=== PATIENT | female | born 1990 | race Caucasian/White ===

== ENCOUNTER 2018-04-27 22:12 | Emergency (ER) | payer MEDICAID, SELFPAY ==
[2018-04-27 22:13] VITALS: BP 152/79; PULSE 88; RESP 18; TEMP 36.2; O2SAT 99; BMI 44.9
[2018-04-27] MEDS: Naproxen 500 MG Tablet PO (22:31)
[2018-04-27] MEDS: HYDROcodone Bitartrate/Apap 5/325 Tablet PO ×2 (22:31→23:51)
--- NOTE | 2018-04-27 22:40 | RAD_ITS ---
STUDY: X-RAY - PELVIS REASON FOR EXAM: Female, 27 years old. Fall and pain TECHNIQUE: One view of the pelvis was obtained. COMPARISON: None. FINDINGS: There is a non-specific bowel gas pattern. Normal visualized soft tissue structures. Normal bilateral iliac wings, sacroiliac joints and visualized sacrum. Normal visualized bilateral superior and inferior pubic rami. Normal pubic symphysis. Normal ischial tuberosities. Normal visualized right femoral head. Normal right acetabulum. Normal right hip joint. Normal visualized left femoral head. Normal left acetabulum. Normal left hip joint. RAD/Pelvis 1 or 2 Views IMPRESSION: No acute osseous injury is evident. Electronically Signed: Manuel Cody MD at 23:14 EST Tel , Service support ,
--- NOTE | 2018-04-27 22:40 | RAD_ITS ---
STUDY: X-RAY - LUMBAR SPINE REASON FOR EXAM: Female, 27 years old. Fall and pain TECHNIQUE: 3 view(s) of the lumbar spine were obtained. COMPARISON: None FINDINGS: Normal lumbar lordosis. There is no substantial scoliosis. There is a normal alignment of the vertebrae. Normal vertebral bodies and endplates. Normal disc space heights. The soft tissue structures are unremarkable. RAD/Lumbar Spine 2 or 3 Views IMPRESSION: No acute osseous injury is evident. Comment: If there is further clinical concern for a radiographically occult spinal fracture, consider CT correlation if possible. Electronically Signed: Manuel Cody MD at 23:04 EST Tel , Service support ,
--- NOTE | 2018-04-27 23:20 | ED.DCSUM_ITS ---
- ER Visit Summary Date of Service: 04/27/18 Chief Complaint: Back injury History of Present Illness: The patient is a 27 F who fell on the ice landing on her buttocks. She complains of pain to the low back. Pain does not radiate into her legs. She has no paresthesias. She denies any prior problems with her back. Physical Examination: Vital signs significant for blood pressure of 152/79, otherwise unremarkable. Patient sitting on the side of bed. She is uncomfortable but in no acute distress. Head neck examination is unremarkable. Heart is regular rate and rhythm. Lungs sounds are clear. Abdomen is soft and nontender. Back examination reveals no ecchymosis or abrasions. She has significant tenderness of the lumbar midline and over the sacrum. Lower extreme examination was good strength and sensation with strong distal pulses. Test Results: Lumbar spine and pelvis x-rays reveal no evidence of acute osseous injury. Emergency Department Course and Treatment: Patient is given Tenino, Naprosyn, and Flexeril. On repeat evaluation patient is resting comfortably. Test results are discussed with her. She will be given a work note for tonight and written prescriptions for pain and muscle spasm. Treatment Plan: [] Disposition: Discharge Impression: Lumbar strain status post fall This note was generated with [employer] dictation software. It may contain incorrect words, spelling, and punctuation that were not noted in review of the chart prior to signing ED Disposition - Plan for ED Patient: Referrals: Care Physician,No Primary [Primary Care Provider] -
--- NOTE | 2018-04-27 23:20 | ED.DEP ---
ED Disposition - Plan for ED Patient: Disposition: Home or Assisted Living Instructions: ED Sprain Strain Lumbar Prescriptions: Hydrocodone Bitart/Apap 5-325 [Cove 5MG-325MG] 1 tablet PO Q6H PRN PRN 3 Days #10 tablet PRN Reason: Pain Naproxen [Naprosyn] 500 mg PO BID PRN PRN #20 tablet PRN Reason: Pain Cyclobenzaprine [Flexeril] 10 mg PO TID PRN #20 tablet PRN Reason: Muscle Spasm Referrals: Charly Bui MD [STAFF PHYSICIAN] - As Needed
[2018-04-27 23:52] VITALS: RESP 18
== END 2018-04-27 23:53 | disposition home or self-care (01) ==
PROVIDERS: Emergency Provider Emergency Medicine
DX: S39.012A Strain of muscle, fascia and tendon of lower back, initial encounter (principal); M62.830 Muscle spasm of back; W00.0XXA Fall on same level due to ice and snow, initial encounter; Y93.9 Activity, unspecified; Y92.9 Unspecified place or not applicable; Y99.9 Unspecified external cause status; Z72.0 Tobacco use
CPT/HCPCS: 72100; 72170; 99283

== ENCOUNTER 2018-07-13 10:03 | Emergency (ER) | payer MEDICAID, SELFPAY ==
[2018-07-13 10:05] VITALS: BP 150/89; PULSE 83; RESP 16; TEMP 36.3; O2SAT 99; BMI 49.8
[2018-07-13] MEDS: 0.9% Normal Saline 1,000 ML 1000 ML IV (10:49)
[2018-07-13] MEDS: Ketorolac 30 MG/ML Syringe IV (10:49)
[2018-07-13] MEDS: Metoclopramide 10 MG/2 ML Vial IV (10:49)
[2018-07-13] MEDS: DiphenhydrAMINE 50 MG/ML Syringe 25 MG IV (10:49)
--- NOTE | 2018-07-13 11:15 | ED.VISSUMM ---
- ER Visit Summary Date of Service: 07/13/18 Chief Complaint: [Headache] History of Present Illness: The patient is a 27 F [presents to the emergency department complaint of a headache that started 2 days ago. Patient describes it as throbbing bitemporal. Patient complains of photophobia and severe phonophobia. Patient had some mild nausea but no vomiting. She denies any falls or head injuries. She has had increased stress due to finances recently. Patient does get headaches intermittently. Patient currently rates the headache an 8 out of 10. Headache did not improve with ibuprofen at home. She denies any fever or recent illness. She denies urinary symptoms.] Physical Examination: [HEENT-PERRLA, EOMI. Cranial nerves II through XII grossly intact. TMs clear. Mucous membranes moist. No adenopathy. Cardiovascular-regular rate and rhythm without murmur or ectopy Lungs-clear to auscultation, chest wall stable without crepitus or subcu emphysema Abdomen-normoactive bowel sounds, soft, nontender, no rebound or rigidity, no peritoneal signs. Neuro dxdm-bfkpeq-lbhb and heel luis testing within normal limits, negative Romberg, negative pronator drift, fundi benign Extremities-intact ?4, normal range of motion, normal pulses, atraumatic] Test Results: None indicated] Emergency Department Course and Treatment: [Patient was medicated with Reglan, Benadryl, and Toradol. Patient was given a liter normal same fluid bolus.] Patient states that her pain is significantly improved and just has minimal discomfort at this time. Treatment Plan: [Patient will be referred to primary care physician phonograph cartridge assembler for no doc for follow-up. Patient advised to push fluids. Patient advised to return if worsening pain, difficulty with balance or speech, or condition should worsen anyway.] Disposition: [Discharged home in stable condition] Impression: [Cephalgia] This note was generated with [employer] dictation software. It may contain incorrect words, spelling, and punctuation that were not noted in review of the chart prior to signing ED Disposition - Plan for ED Patient: Referrals: Care Physician,No Primary [Primary Care Provider] -
--- NOTE | 2018-07-13 11:49 | ED.DEP ---
ED Disposition - Plan for ED Patient: Instructions: ED Cephalgia Unspecified Referrals: Care Physician,No Primary [Primary Care Provider] - Troy Ramirez III, MD [STAFF PHYSICIAN] - 3-5 Days
== END 2018-07-13 12:17 | disposition home or self-care (01) ==
PROVIDERS: Emergency Provider Emergency Medicine
DX: R51 Headache (principal); H53.149 Visual discomfort, unspecified; R11.0 Nausea; Z72.0 Tobacco use
CPT/HCPCS: 96361; 96374; 96375; 99283; J7030; A4216

== ENCOUNTER → 2019-01-02 09:14 | Outpatient (CLI) | payer MEDICAID, SELFPAY ==
[2019-01-02 11:17] LABS: hCG Titer Quant., Serum 275 mIU/mL (1-3)
== END ==
PROVIDERS: Referring Provider Obstetrics & Gynecology; Visit Provider Obstetrics & Gynecology
DX: N92.6 Irregular menstruation, unspecified (principal)
CPT/HCPCS: 36415; 84702

== ENCOUNTER 2019-01-03 12:14 | Emergency (ER) | payer MEDICAID, SELFPAY ==
[2019-01-03 12:15] VITALS: BP 138/84; PULSE 67; RESP 18; TEMP 35.7; BMI 49.4
--- NOTE | 2019-01-03 13:14 | ED.VISSUMM ---
- ER Visit Summary Date of Service: 01/03/19 Chief Complaint: Vaginal bleeding and reportedly early History of Present Illness: The patient is a 28 F G3, P1 Ab1 with that being a miscarriage. Patient is concerned she is miscarrying again. Last menstrual period was about 2 weeks ago. She is had intermittent bleeding for the last week. No significant pain. No dysuria. No fever. He had a recent clot which was 275 within the last 2 days. And her blood type is been positive from prior labs. Physical Examination: Well-appearing 28-year-old female. No acute distress. Vital signs are stable and afebrile. H EENT exam unremarkable. Lungs clear to auscultation. Heart regular rhythm no murmur. Abdomen soft and nontender. Normal bowel sounds no peritoneal signs. Extremities moves all 4. Neurovascular intact. No edema. Neurologically she is awake alert with no focal motor deficits. Test Results: None Emergency Department Course and Treatment: I reviewed the patient's most recent quant which was 275 and last 2 days. Her blood type B+. I explained to both her and her additional labs with really made no significant difference at this time. An ultrasound is not warranted. She will follow-up with her ELIGIBILITY COUNSELOR this week. Treatment Plan: Follow-up with her OB this week. Need a repeat quant. Further evaluation. Return if worse. Disposition: Discharge Impression: Threatened miscarriage This note was generated with [employer] dictation software. It may contain incorrect words, spelling, and punctuation that were not noted in review of the chart prior to signing ED Disposition - Plan for ED Patient: Referrals: Care Physician,No Primary [Primary Care Provider] -
--- NOTE | 2019-01-03 13:16 | ED.DEP ---
ED Disposition - Plan for ED Patient: Disposition: Home or Assisted Living Instructions: POSSIBLE MISCARRIAGE (Threatened ) Referrals: Hailey Loving MD [STAFF PHYSICIAN] - 3-5 Days Additional Instructions: Tylenol for any cramping. Follow-up with your CONTACT LENS EDGE BUFFER and have a repeat quantitative hCG done later this week. Return to the ER if a lot heavier and continued vaginal bleeding.
== END 2019-01-03 13:27 | disposition home or self-care (01) ==
PROVIDERS: Emergency Provider Emergency Medicine
DX: O20.0 Threatened abortion (principal); O99.330 Smoking (tobacco) complicating pregnancy, unspecified trimester; Z3A.00 Weeks of gestation of pregnancy not specified
CPT/HCPCS: 99282

== ENCOUNTER → 2019-01-05 | Outpatient (CLI) | payer MEDICAID, SELFPAY ==
[2019-01-03 12:15] VITALS: BMI 49.4
[2019-01-05 14:25] LABS: hCG Titer Quant., Serum 105 mIU/mL (1-3)
== END | disposition home or self-care (01) ==
PROVIDERS: Referring Provider Obstetrics & Gynecology; Visit Provider Obstetrics & Gynecology
DX: O20.0 Threatened abortion (principal)
CPT/HCPCS: 36415; 84702

== ENCOUNTER → 2019-01-07 10:20 | Outpatient (CLI) | payer MEDICAID, SELFPAY ==
[2019-01-03 12:15] VITALS: BMI 49.4
[2019-01-07 12:10] LABS: hCG Titer Quant., Serum 108 mIU/mL (1-3)
== END ==
PROVIDERS: Referring Provider Obstetrics & Gynecology; Visit Provider Obstetrics & Gynecology
DX: O20.0 Threatened abortion (principal); Z3A.00 Weeks of gestation of pregnancy not specified
CPT/HCPCS: 36415; 84702

== ENCOUNTER → 2019-01-09 09:09 | Outpatient (CLI) | payer MEDICAID, SELFPAY ==
[2019-01-03 12:15] VITALS: BMI 49.4
[2019-01-09 10:17] LABS: hCG Titer Quant., Serum 81 mIU/mL (1-3)
== END ==
PROVIDERS: Referring Provider Obstetrics & Gynecology; Visit Provider Obstetrics & Gynecology
DX: O20.0 Threatened abortion (principal); Z3A.00 Weeks of gestation of pregnancy not specified
CPT/HCPCS: 36415; 84702

== ENCOUNTER 2019-01-11 18:27 | Emergency (ER) | payer MEDICAID, SELFPAY ==
[2019-01-11 18:29] VITALS: BP 148/85; PULSE 89; RESP 16; TEMP 36.2; O2SAT 99; BMI 54.6
[2019-01-11 19:52] LABS: Bacteria 0 SEEN /hpf (None Seen); Color, Urine Yellow (Yellow); Glucose, Dipstick Normal (Normal); Ketone-Dipstick 5 mg/dl (Negative); Leukocyte Esterase-Dipstick 25 /ul (Negative); Nitrite-Dipstick Negative (Negative); Occult Blood-Urine 150 /ul (Negative); Protein-Dipstick 15 mg/dl (Negative); Urine Bilirubin Dipstick Negative (Negative); Urine Clarity Clear (Clear); Urine Urobilinogen 4 mg/dl (Normal); White Blood Cells 0 SEEN /hpf (0-5)
[2019-01-11] MEDS: 0.9% Normal Saline 1,000 ML 1000 ML IV (19:52)
[2019-01-11 20:02] LABS: Mucous, Urine RARE /hpf (<or=2+); Squamous Epithelial Cells - UA 0-5 SEEN /hpf (5-10)
[2019-01-11 20:03] LABS: Red Blood Cells-Urine 0-5 SEEN /hpf (0-5)
[2019-01-11 20:05] LABS: Absolute Neutrophil Count 6.1 X10^3/uL (2.0-7.7); Basophil# 0.05 X10^3/uL; Basophil% 0.4 % (0-1); Eosinophil# 0.26 X10^3/uL; Eosinophils% 2.3 % (0-5); Hematocrit 43.8 % (37-47); Hemoglobin 14.2 g/dL (12.0-15.0); Lymphocyte % 35.9 % (19-41); Mean Corp Hgb Conc 32.4 g/dL (32-36); Mean Corpuscular Hgb 27.4 pg (27.0-32.0); Mean Corpuscular Volume 84.6 fL (81-99); Mean Platelet Vol. 10.4 fl (6.2-12.0); Monocyte# 0.88 X10^3/uL; Monocyte% 7.7 % (0-10); NRBC Flagged by Analyzer 0 % (0-5); Neutrophil # 6.09 X10^3/uL (2.7-7.7); Neutrophil % 53.4 % (47-70); POSITIVE MORPHOLOGY YES; Platelet Count 270 K/mm3 (150-450); RBC Distribution Width SD 40.4 fl (35.1-43.9); Red Blood Count 5.18 M/mm3 (4.2-5.4); White Blood Count 11.4 K/mm3 (4.4-11.0)
[2019-01-11 20:09] LABS: Differential Indicated SCAN CRITERIA MET
[2019-01-11 20:22] LABS: hCG Titer Quant., Serum 61 mIU/mL (1-3)
[2019-01-11 20:34] LABS: Differential Comment SCANNED; Platelet Estimate ADEQUATE (ADEQ); Reactive Lymphocyte RARE; Red Cell Morphology NORM C+C NORMAL (NORM C&C)
--- NOTE | 2019-01-11 20:57 | ED.VISSUMM ---
- ER Visit Summary Date of Service: 01/11/19 Chief Complaint: Pelvic pain History of Present Illness: The patient is a 28 F who presents with pelvic pain that is gradually gotten worse over the past 2 days. Patient states the pain is constant. Patient states the pain is over the pelvic area, left lower quadrant and left lower back area. Patient states nothing makes it better or worse. Patient describes the pain is sharp and a warm feeling. Patient denies any dysuria or hematuria. Patient admits to nausea but denies any vomiting. Patient denies any fevers or chills. Patient denies any other symptoms. Patient saw her SITE SURVEYOR 2 days ago and had an hCG drawn at that time which was 81. Physical Examination: Vital signs are stable. Patient is afebrile. Patient is in no acute distress. Oral mucosa is pink and moist. Neck is supple. Trachea is midline. There is no JVD. Heart was regular rate and rhythm. Lungs are clear and equal bilaterally. Abdomen is soft. Bowel sounds are normal. There is tenderness over the suprapubic and left lower quadrant areas. There is no rebound or guarding noted. Cranial nerves II through XII are intact. There are no focal motor or sensory deficits noted. Test Results: CBC shows slight leukocytosis of 11.4. Urinalysis does not show any evidence of urinary tract infection. Quantitative hCG was 61. Emergency Department Course and Treatment: Patient was given IV fluids. Patient was given a dose of [place] here. Patient was advised that her hCG level is declining and therefore she is likely having a miscarriage. Patient was instructed to follow-up with her SITE SURVEYOR in 1 to 2 days. Patient understood and was agreeable with the plan. All questions were answered. Disposition: Discharge home Impression: Spontaneous This note was generated with [employer] dictation software. It may contain incorrect words, spelling, and punctuation that were not noted in review of the chart prior to signing ED Disposition - Plan for ED Patient: Disposition: Home or Assisted Living Diagnosis: Spontaneous Instructions: Miscarriage Referrals: Care Physician,No Primary [Primary Care Provider] - Additional Instructions: Follow-up with your SITE SURVEYOR in 1 to 2 days. Return if worsening bleeding or cramping.
[2019-01-11] MEDS: HYDROcodone Bitartrate/Apap 5/325 Tablet PO (21:11)
[2019-01-11 21:18] VITALS: BP 140/60; PULSE 73; RESP 16; O2SAT 100
== END 2019-01-11 21:20 | disposition home or self-care (01) ==
PROVIDERS: Emergency Provider Emergency Medicine
DX: O03.9 Complete or unspecified spontaneous abortion without complication (principal); R11.0 Nausea; E66.9 Obesity, unspecified; Z72.0 Tobacco use
CPT/HCPCS: 81001; 84702; 85025; 96360; 99284; J7030; A4216

== ENCOUNTER → 2019-01-18 15:56 | Outpatient (CLI) | payer MEDICAID, SELFPAY ==
[2019-01-12 15:12] VITALS: BMI 54.6
[2019-01-18 16:45] LABS: hCG Titer Quant., Serum 16 mIU/mL (1-3)
== END ==
PROVIDERS: Visit Provider Obstetrics & Gynecology
DX: O03.9 Complete or unspecified spontaneous abortion without complication (principal)
CPT/HCPCS: 36415; 84702

== ENCOUNTER 2019-04-24 10:45 | Emergency (ER) | payer MEDICAID, SELFPAY ==
[2019-01-12 15:12] VITALS: BMI 54.6
[2019-04-24 10:47] VITALS: BP 141/84; PULSE 86; RESP 20; TEMP 37.2; O2SAT 98; BMI 47.7
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
[2019-04-24] MEDS: oxyCODONE 5 MG Tablet PO (11:09)
== END 2019-04-24 12:21 | disposition home or self-care (01) ==
PROVIDERS: Emergency Provider Emergency Medicine
DX: Z04.1 Encounter for examination and observation following transport accident (principal); M54.5 Low back pain; R51 Headache; R11.0 Nausea; E66.9 Obesity, unspecified; Z88.0 Allergy status to penicillin; Z88.1 Allergy status to other antibiotic agents; F17.200 Nicotine dependence, unspecified, uncomplicated
CPT/HCPCS: 70450; 72100; 72125; 99283

== ENCOUNTER 2019-09-04 18:45 | Emergency (ER) | payer MEDICAID, SELFPAY ==
[2019-09-04 18:46] VITALS: BP 149/97; PULSE 80; RESP 16; TEMP 36.1; O2SAT 99; BMI 48.8
--- NOTE | 2019-09-04 20:56 | ED.VIS.GEN ---
History of Present Illness Chief Complaint: Headache Narrative: Patient presents with a headache that started 3 days ago it is right sided she has photophobia, phonophobia. She denies any visual changes, she has some nausea no vomiting she does tell me she thinks she is about 10 weeks due to a positive test at home. She has no abdominal pain no vaginal bleeding or any other symptoms. Her headache was gradual in onset, got worse quite a few hours after the onset, it is similar to all her prior migraines, she tells me the last headache that was this bad was about 3 months ago. Past Medical History - Allergies and Home Meds Allergies/Adverse Reactions: Allergies adhesive Allergy (Verified 09/04/19 20:28) Rash amoxicillin [Amoxicillin] Allergy (Verified 09/04/19 20:28) Rash cefaclor [From Ceclor] Allergy (Verified 09/04/19 20:28) Rash Penicillins Allergy (Verified 09/04/19 20:28) Rash Primary Care Physician: Care Physician,No Primary [Primary Care Provider] - Past Medical History: - - Migraines, asthma Smoking Status: Current every day smoker Review of Systems All systems negative except as indicated General: Denies: Fever Eyes: Denies: Visual changes - bilaterally Cardiovascular: Denies: Chest pain Respiratory: Denies: Dyspnea, Cough Genitourinary: Denies: Dysuria Musculoskeletal: Denies: Myalgias, Arthralgias Skin: Denies: Rash Neurological: Reports: Headache. Denies: Weakness, Parasthesia, Numbness Psych: Reports: Depression Hematologic: Denies: Easy bruising Physical Exam Vital Signs/Narrative: Vital Signs Temp Pulse Resp BP Pulse Ox 09/04/19 18:46 97 F L 80 16 149/97 H 99 General: Well nourished, Well developed, - - She appears in slight distress Head: Normocephalic Eyes: Perrl, EOMI ENT: Moist mucous membranes Cardiovascular: Regular rate, Regular rhythm Respiratory: No distress Abdomen: Soft, Nontender Back: Nontender, Normal Inspection Extremities: No edema Skin: Normal color Neurological: Alert, Oriented x3, Cranial nerves II-XII grossly intact, Normal Strength, Normal Sensation Diagnostic/Tx/Re-eval - Medical Decision Making Patient will receive IV fluids, Reglan and Benadryl. She will be reevaluated by the oncoming emergency physician. This is gradual onset of headache with normal neurological exam, this is a recurrent headache, there is no indication for neurological imaging. ED Disposition - Plan for ED Patient: Disposition: Home or Assisted Living Instructions: ED, Migraine (Classical) Referrals: Care Physician,No Primary [Primary Care Provider] - Additional Instructions: Follow-up with your TURBINE SUBASSEMBLER next week as scheduled.
[2019-09-04] MEDS: 0.9% Normal Saline 1,000 ML 999 ML IV (22:14)
[2019-09-04] MEDS: DiphenhydrAMINE 50 MG/ML Syringe IV (22:15)
[2019-09-04] MEDS: Metoclopramide 10 MG/2 ML Vial IV (22:16)
[2019-09-04 22:50] LABS: Internal QC Validated? YES +Cl - CLEAR BKGD; Pregnancy, Serum, hCG Quali. POSITIVE Negative
[2019-09-04 23:31] VITALS: BP 125/89; PULSE 66; RESP 18; TEMP 36.1; O2SAT 100
== END 2019-09-04 23:32 | disposition home or self-care (01) ==
PROVIDERS: Emergency Provider Emergency Medicine
DX: R51 Headache (principal); Z32.01 Encounter for pregnancy test, result positive; J45.909 Unspecified asthma, uncomplicated; F17.200 Nicotine dependence, unspecified, uncomplicated
CPT/HCPCS: 84703; 96361; 96374; 96375; 99285; J7030

== ENCOUNTER → 2019-09-09 | Outpatient (CLI) | payer MEDICAID, SELFPAY ==
[2019-09-09 11:56] VITALS: BMI 48.8
[2019-09-09 16:49] LABS: Amphetamine Urine VISTA NEGATIVE (<1000 ng/mL); Barbiturate Urine VISTA NEGATIVE (< 200 ng/mL); Benzodiazepine Urine VISTA NEGATIVE (< 200 ng/mL); Cocaine Urine VISTA NEGATIVE (< 300 ng/mL); Ecstacy Urine VISTA NEGATIVE (< 500 ng/mL); Methadone Urine VISTA NEGATIVE (< 300 ng/mL); PCP Urine VISTA NEGATIVE (< 25 ng/mL); THC Urine VISTA NEGATIVE (< 50 ng/mL); Vista UDS pH Range 6
[2019-09-09 18:20] LABS: Chlamydia Trachomatis by PCR Negative (Negative); Neisserai gonorrhoeae by PCR Negative (Negative); Probe Check PASS; Sample Adequacy Control PASS; Specimen Processing Control PASS
[2019-09-17 05:35] LABS: HPV APTIMA, High Risk Negative (Negative)
== END | disposition home or self-care (01) ==
LOC: LABSPEC 15:19
PROVIDERS: Visit Provider Obstetrics & Gynecology
DX: Z34.90 Encounter for supervision of normal pregnancy, unspecified, unspecified trimester (principal); Z12.4 Encounter for screening for malignant neoplasm of cervix
CPT/HCPCS: 80307; 87086; 87088; 87491; 87591; 87624; 88175; G0145

== ENCOUNTER → 2019-09-18 10:12 | Outpatient (CLI) | payer MEDICAID, SELFPAY ==
[2019-09-09 11:56] VITALS: BMI 48.8
[2019-09-18 11:47] LABS: NATERA MAILED SPECIMEN
[2019-09-18 12:25] LABS: Glucose Challenge Gest 1H 50g 127 mg/dL (70-140)
[2019-09-18 12:56] LABS: Absolute Lymphocyte Count 2.64 X10^3/uL (0.83-4.51); Absolute Neutrophil Count 6.4 X10^3/uL (2.0-7.7); Basophil# 0.03 X10^3/uL; Basophil% 0.3 % (0-1); Eosinophil# 0.18 X10^3/uL; Eosinophils% 1.8 % (0-5); Hematocrit 38.4 % (37-47); Hemoglobin 12.6 g/dL (12.0-15.0); Lymphocyte # 2.64 X10^3/ul (4.0); Lymphocyte % 26.7 % (19-41); Mean Corp Hgb Conc 32.8 g/dL (32-36); Mean Corpuscular Hgb 27.9 pg (27.0-32.0); Mean Corpuscular Volume 85.1 fL (81-99); Mean Platelet Vol. 10.6 fl (6.2-12.0); Monocyte# 0.58 X10^3/uL; Monocyte% 5.9 % (0-10); NRBC Flagged by Analyzer 0 % (0-5); Neutrophil # 6.43 X10^3/uL (2.7-7.7); Platelet Count 245 K/mm3 (150-450); RBC Distribution Width CV 13.8 % (11.6-14.6); RBC Distribution Width SD 42.5 fl (35.1-43.9); Red Blood Count 4.51 M/mm3 (4.2-5.4); White Blood Count 9.9 K/mm3 (4.4-11.0)
[2019-09-18 13:06] LABS: HIV - WCH Non-Reactive (Nonreactive); Hepatitis B Surface Antigen Non-Reactive (Nonreactive); Hepatitis C Antibody Non-Reactive (Nonreactive); Rubella IgG 124.9 IU/mL
[2019-09-24 03:25] LABS: Rapid Plasmin Reagin (RPR) NONREACTIVE (NONREACTIVE)
== END ==
PROVIDERS: Referring Provider Obstetrics & Gynecology; Visit Provider Obstetrics & Gynecology
DX: O99.211 Obesity complicating pregnancy, first trimester (principal); O99.212 Obesity complicating pregnancy, second trimester; E66.9 Obesity, unspecified; Z3A.00 Weeks of gestation of pregnancy not specified
CPT/HCPCS: 36415; 82950; 85025; 86592; 86703; 86762; 86803; 86850; 86900; 86901; 87340

== ENCOUNTER → 2019-10-08 10:11 | Outpatient (CLI) | payer MEDICAID, SELFPAY ==
[2019-10-08 09:58] VITALS: BMI 48.8
== END ==
PROVIDERS: Referring Provider Nurse Practitioner Women's Health; Visit Provider Nurse Practitioner Women's Health
DX: Z36.9 Encounter for antenatal screening, unspecified (principal)
CPT/HCPCS: 36415

== ENCOUNTER → 2020-01-01 10:28 | Outpatient (CLI) | payer MEDICAID, SELFPAY ==
[2019-12-02 10:37] VITALS: BMI 48.8
[2020-01-01 11:03] LABS: Absolute Lymphocyte Count 3.42 X10^3/uL (0.83-4.51); Absolute Neutrophil Count 9.5 X10^3/uL (2.0-7.7); Basophil# 0.03 X10^3/uL; Basophil% 0.2 % (0-1); Eosinophil# 0.23 X10^3/uL; Eosinophils% 1.6 % (0-5); Hematocrit 35.8 % (37-47); Hemoglobin 11.4 g/dL (12.0-15.0); Lymphocyte # 3.42 X10^3/ul (4.0); Lymphocyte % 24.4 % (19-41); Mean Corp Hgb Conc 31.8 g/dL (32-36); Mean Corpuscular Hgb 27.7 pg (27.0-32.0); Mean Corpuscular Volume 86.9 fL (81-99); Mean Platelet Vol. 9.7 fl (6.2-12.0); Monocyte# 0.79 X10^3/uL; Monocyte% 5.6 % (0-10); NRBC Flagged by Analyzer 0 % (0-5); Neutrophil # 9.45 X10^3/uL (2.7-7.7); Neutrophil % 67.6 % (47-70); Platelet Count 264 K/mm3 (150-450); RBC Distribution Width CV 12.9 % (11.6-14.6); RBC Distribution Width SD 40.5 fl (35.1-43.9); Red Blood Count 4.12 M/mm3 (4.2-5.4)
[2020-01-01 11:17] LABS: Glucose Challenge Gest 1H 50g 134 mg/dL (70-140)
== END ==
PROVIDERS: Obstetrics & Gynecology; Referring Provider Obstetrics & Gynecology; Visit Provider Obstetrics & Gynecology
DX: O09.90 Supervision of high risk pregnancy, unspecified, unspecified trimester (principal); Z13.1 Encounter for screening for diabetes mellitus
CPT/HCPCS: 36415; 82950; 85025

== ENCOUNTER → 2020-01-05 09:49 | Outpatient (CLI) | payer MEDICAID, SELFPAY ==
[2020-01-01 10:40] VITALS: BMI 52.4
[2020-01-05 11:35] LABS: Glucose GTT-Gestation. Fasting 97 mg/dL (<105)
[2020-01-05 12:09] LABS: Glucose GTT-Gestational 1 Hr 163 mg/dL (<190)
[2020-01-05 13:15] LABS: Glucose GTT-Gestational 2 Hr 148 mg/dL (<165)
[2020-01-05 13:43] LABS: Glucose GTT-Gestational 3 Hr 124 L (<145)
== END ==
PROVIDERS: Referring Provider Obstetrics & Gynecology; Visit Provider Obstetrics & Gynecology
DX: Z13.1 Encounter for screening for diabetes mellitus (principal)
CPT/HCPCS: 36415; 82951; 82952

== ENCOUNTER → 2020-01-12 14:28 | Outpatient (CLI) | payer MEDICAID, SELFPAY ==
[2020-01-01 10:40] VITALS: BMI 52.4
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
== END ==
PROVIDERS: Referring Provider Obstetrics & Gynecology; Visit Provider Obstetrics & Gynecology
DX: O99.210 Obesity complicating pregnancy, unspecified trimester (principal)
CPT/HCPCS: 76816

== ENCOUNTER → 2020-02-09 14:24 | Outpatient (CLI) | payer MEDICAID, SELFPAY ==
[2020-01-01 10:40] VITALS: BMI 52.4
[2020-02-01 11:03] VITALS: BMI 52.9
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
== END ==
PROVIDERS: Referring Provider Obstetrics & Gynecology; Visit Provider Obstetrics & Gynecology
DX: O99.210 Obesity complicating pregnancy, unspecified trimester (principal); Z3A.00 Weeks of gestation of pregnancy not specified
CPT/HCPCS: 76816

== ENCOUNTER 2020-02-19 14:16 | Emergency (ER) | payer MEDICAID, SELFPAY ==
[2020-02-17 11:01] VITALS: BMI 53.7
[2020-02-19 14:17] VITALS: BP 141/79; PULSE 101; PULSE 104; RESP 16; RESP 28; TEMP 36.8; O2SAT 97; BMI 54.2
--- NOTE | 2020-02-19 14:22 | NURSING ---
NO OLD EKGS
--- NOTE | 2020-02-19 14:26 | EKG12_ITS ---
Test Reason : CP Blood Pressure : / mmHG Vent. Rate : 104 BPM Atrial Rate : 104 BPM P-R Int : 132 ms QRS Dur : 070 ms QT Int : 336 ms P-R-T Axes : 045 -07 005 degrees QTc Int : 441 ms Sinus tachycardia Otherwise normal ECG Confirmed by VALE GARDNER, WILFRIDO ([id number]), editor producer MELISSA VARGHESE ([id number]) on 02/24/2020 9:19:48 AM Referred By: GERRY Confirmed By:WILFRIDO COLLAZO MD
[2020-02-19 14:39] LABS: Absolute Lymphocyte Count 3.03 X10^3/uL (0.83-4.51); Absolute Neutrophil Count 10.9 X10^3/uL (2.0-7.7); Basophil# 0.04 X10^3/uL; Basophil% 0.3 % (0-1); Eosinophil# 0.16 X10^3/uL; Eosinophils% 1.1 % (0-5); Hematocrit 38.5 % (37-47); Hemoglobin 12.7 g/dL (12.0-15.0); Lymphocyte # 3.03 X10^3/ul (4.0); Lymphocyte % 20.5 % (19-41); Mean Corpuscular Volume 81.7 fL (81-99); Mean Platelet Vol. 10.1 fl (6.2-12.0); Monocyte# 0.48 X10^3/uL; Monocyte% 3.2 % (0-10); NRBC Flagged by Analyzer 0 % (0-5); Neutrophil # 10.94 X10^3/uL (2.7-7.7); Platelet Count 286 K/mm3 (150-450); RBC Distribution Width CV 12.8 % (11.6-14.6); Red Blood Count 4.71 M/mm3 (4.2-5.4); White Blood Count 14.8 K/mm3 (4.4-11.0)
[2020-02-19 15:00] LABS: Anion Gap 8 (5-15); BUN 6 mg/dL (7-18); BUN/Creat Ratio 8.7 RATIO (10-20); Chloride 107 mmol/L (98-107); Creatinine, Serum 0.69 mg/dL (0.55-1.02); EST Glomerular Filtration Rate 105 mL/min (>60); Est Glom Filt Rate - Afr Amer 127 mL/min (>60); Estimated Creatinine Clearance 84.85 ml/min; Glucose 162 mg/dL (74-106); Potassium 3.7 mmol/L (3.5-5.1); Sodium Level 137 mmol/L (136-145)
[2020-02-19 15:17] VITALS: BP 139/75; PULSE 96; RESP 18; O2SAT 98
--- NOTE | 2020-02-19 15:50 | RAD_ITS ---
STUDY: X-RAY CHEST REASON FOR EXAM: Female, 29 years old. Chest pain TECHNIQUE: Frontal view of the chest COMPARISON: 10/05/14 FINDINGS: The lungs are clear. There are no pleural effusions. There is no pneumothorax. The heart is normal in size. The visualized osseous structures are within normal limits. RAD/Chest 1 View (Portable) IMPRESSION: No acute thoracic pathology. Electronically Signed: Hero Reynolds, at 17:08 EST Tel , Service support ,
--- NOTE | 2020-02-19 15:59 | ED.DCSUM_ITS ---
History of Present Illness Informant: Patient Onset: Today Narrative: 29-year-old female who is currently 35 weeks with past medical history of asthma presents with complaints of chest pain. At approximately 2 PM she was sitting on the couch when she started to feel her heart race. She started having left-sided chest pain which she describes as a sensation that someone was poking her. Pain was 6/10. No radiation. She was mildly nauseous, but denies vomiting or diaphoresis. Nothing made the pain better or worse. No shortness of breath. She states now the pain is starting to subside. Denies fevers, chills, cough, shortness of breath, abdominal pain, back pain, leg pain or swelling, recent surgery or travel, or history of DVT/PE <Opal Benjamin - Last Filed: 02/19/20 17:11> <Malcolm Vincent - Last Filed: 02/19/20 20:50> Chief Complaint: Chest Pain Past Medical History Past Medical History: - - Asthma Smoking Status: Current some day smoker <Opal Benjamin - Last Filed: 02/19/20 17:11> <Malcolm Vincent - Last Filed: 02/19/20 20:50> - Allergies and Home Meds Allergies/Adverse Reactions: Allergies adhesive Allergy (Verified 02/19/20 14:17) Rash amoxicillin [Amoxicillin] Allergy (Verified 02/19/20 14:17) Rash cefaclor [From Ceclor] Allergy (Verified 02/19/20 14:17) Rash Penicillins Allergy (Verified 02/19/20 14:17) Rash Primary Care Physician: Care Physician,No Primary [Primary Care Provider] - Review of Systems General: Denies: Chills, Fever, Sweats Eyes: Denies: Visual changes - bilaterally, Diplopia ENT: Denies: Rhinorrhea, Sore throat Cardiovascular: Reports: Chest pain, Palpitations, Heart racing Respiratory: Denies: Dyspnea, Cough, Dyspnea on exertion Gastrointestinal: Denies: Abdominal pain, Nausea, Vomiting, Diarrhea, Melena, Hematochezia Genitourinary: Denies: Dysuria, Hematuria, Frequency Musculoskeletal: Denies: Back pain, Extremity Pain Skin: Denies: Rash, Wounds Neurological: Denies: Headache, Weakness, Numbness <Opal Benjamin - Last Filed: 02/19/20 17:11> Physical Exam Vital Signs/Narrative: Vital Signs Temp Pulse Resp BP Pulse Ox 02/19/20 15:17 96 18 139/75 H 98 02/19/20 14:17 98.3 F 104 H 16 141/79 H 97 Inital Vital Signs reviewed: Yes General: Well nourished, Well developed, No Acute Distress Head: Normocephalic, Atraumatic Eyes: Perrl, EOMI ENT: Moist mucous membranes, No rhinorrhea Neck: Supple, Nontender Cardiovascular: Regular rate, Regular rhythm, No murmurs Respiratory: No distress, CTA bilaterally, Chest nontender Abdomen: Soft, Nontender, Nondistended, Normal bowel sounds, - - Gravid abdomen, soft and nontender Back: Nontender, Normal Inspection Extremities: Nontender, No edema Skin: Normal color, No rash Neurological: Alert, Oriented x3, Cranial nerves II-XII grossly intact Psychological: Normal affect, Normal Mood <Opal Benjamin - Last Filed: 02/19/20 17:11> Vital Signs/Narrative: Vital Signs Pulse Resp BP Pulse Ox 02/19/20 17:49 89 22 H 129/88 H 97 02/19/20 17:00 92 20 H 127/82 H 99 <Malcolm Vincent - Last Filed: 02/19/20 20:50> Diagnostic/Tx/Re-eval Clinical Impression(s) from Imaging Studies Chest X-Ray 02/19/20 15:50 IMPRESSION: No acute thoracic pathology. Electronically Signed: Hero Reynolds, at 17:08 EST Tel , Service support , Laboratory Data 02/19/20 02/19/20 14:02 14:02 WBC 14.8 H RBC 4.71 Hgb 12.7 Hct 38.5 MCV 81.7 MCH 27.0 MCHC 33.0 RDW Std Deviation 38.0 RDW Coeff of John Paul 12.8 Plt Count 286 MPV 10.1 Immature Gran % (Auto) 0.900 Neut % (Auto) 74.0 H Lymph % (Auto) 20.5 Johnston % (Auto) 3.2 Eos % (Auto) 1.1 Baso % (Auto) 0.3 Absolute Neuts (auto) 10.9 H Absolute Lymphs (auto) 3.03 Nucleated RBC % 0 Sodium 137 Potassium 3.7 Chloride 107 Carbon Dioxide 22.0 Anion Gap 8 BUN 6 L Creatinine 0.69 Estim Creat Clear Calc 84.85 Est GFR (MDRD) Af Amer 127 Est GFR (MDRD) Non-Af 105 BUN/Creatinine Ratio 8.7 L Glucose 162 H Calcium 9.0 Troponin I < 0.015 - Rhythm Strip Rhythm Strip: Sinus Tach Rate: 104 Ectopy: None - Medical Decision Making 29-year-old female who is 35 weeks presents with palpitations and transient left-sided chest pain. She appears well nontoxic. Vital signs show heart rate in the 100s, otherwise normal. Heart is tachycardic with regular rhythm with no murmurs or gallops. Lungs were clear to auscultation. No lower extremity swelling or tenderness. EKG is sinus tachycardia at 104 with normal intervals and no ischemic changes. Basic labs unremarkable. Troponin negative. Chest x-ray shows no acute process. Upon reevaluation, patient states her chest pain has completely resolved. Heart rate has improved to the 80s. O2 sat was 95% or above during the entire stay. With her history, completely resolved symptoms, and normal vital signs, I have low concern for PE. She is stable for outpatient follow up with her PCP and [employer]. Discussed signs and symptoms that would warrant return to the ED. She was agreeable and discharged home in stable condition. <Opal Benjamin - Last Filed: 02/19/20 17:11> - Medical Decision Making Patient seen and examined independently. On my examination she is feeling much better. Her work-up here did not reveal any significant acute abnormality. I do not have a great explanation to the cause of her symptoms although does not seem to be ACS. Low concern for pulmonary embolism. Her symptoms have completely resolved and she does want to be discharged home. We will have her follow-up with her PCP. Warning signs and symptoms which to return to ED are reviewed. <Malcolm Vincent - Last Filed: 02/19/20 20:50> ED Disposition <Opal Benjamin - Last Filed: 02/19/20 17:11> <Malcolm Vincent - Last Filed: 02/19/20 20:50> - Plan for ED Patient: Disposition: Home or Assisted Living Instructions: ED Chest Pain, Noncardiac Referrals: Care Physician,No Primary [Primary Care Provider] -
[2020-02-19 16:00] VITALS: BP 127/87; PULSE 86; RESP 13; O2SAT 97
[2020-02-19 17:00] VITALS: BP 127/82; PULSE 92; RESP 20; O2SAT 99
[2020-02-19 17:49] VITALS: BP 129/88; PULSE 89; RESP 22; O2SAT 97
== END 2020-02-19 17:51 | disposition home or self-care (01) ==
LOC: ED 14:49
PROVIDERS: Emergency Provider Physician Assistant
DX: O26.893 Other specified pregnancy related conditions, third trimester (principal); R07.89 Other chest pain; R00.2 Palpitations; O99.513 Diseases of the respiratory system complicating pregnancy, third trimester; J45.909 Unspecified asthma, uncomplicated; Z3A.35 35 weeks gestation of pregnancy
CPT/HCPCS: 71045; 80048; 84484; 85025; 93005; 99285

== ENCOUNTER → 2020-02-26 12:33 | Outpatient (CLI) | payer MEDICAID, SELFPAY ==
[2020-02-24 11:30] VITALS: BMI 49.4
--- NOTE | 2020-02-26 12:35 | US_ITS ---
STUDY: OBSTETRICAL ULTRASOUND - BIOPHYSICAL PROFILE REASON FOR EXAM: Female, 29 years old DECREASED MOVEMENT LMP: 06/18/2019 PRIOR ULTRASOUND: Comparison is made with prior examination dated 02/09/2020. TECHNIQUE: Transabdominal TECHNICAL QUALITY: Adequate. FINDINGS: There is a single intrauterine fetus. The fetus is in a cephalic presentation. There is demonstrated cardiac activity with a heart rate of 144 bpm. There is a normal amniotic fluid volume. The largest amniotic fluid pocket measures 6.3 cm. The amniotic fluid index (FRANCK) is 15.7 cm. The placenta is fundal in location. There are Grade 2 placental changes. Age by LMP: 36 weeks, 1 days. BETTY by LMP: 03/24/2020. age by prior US: 36 weeks, 3 days. BETTY by prior US: 03/22/2020. BIOPHYSICAL PROFILE: Breathing Movements (FBM): 2 Gross Body Movements (GBM): 2 Tone (FT): 2 Amniotic Fluid Volume (AFV): 2 TOTAL SCORE: / 8 US/Biophysical Prof W/O Non Stres IMPRESSION: Normal biophysical profile of 10/16. Electronically Signed: Mejia Castillo, at 15:15 EST , Service support ,
== END ==
PROVIDERS: Referring Provider Obstetrics & Gynecology; Visit Provider Obstetrics & Gynecology
DX: O36.8190 Decreased fetal movements, unspecified trimester, not applicable or unspecified (principal); O36.8130 Decreased fetal movements, third trimester, not applicable or unspecified; Z3A.36 36 weeks gestation of pregnancy
CPT/HCPCS: 76819

== ENCOUNTER → 2020-03-03 | Outpatient (CLI) | payer MEDICAID, SELFPAY ==
[2020-03-03 09:35] VITALS: BMI 51.2
== END | disposition home or self-care (01) ==
LOC: LABSPEC 12:26
PROVIDERS: Referring Provider Obstetrics & Gynecology; Visit Provider Obstetrics & Gynecology
DX: O09.90 Supervision of high risk pregnancy, unspecified, unspecified trimester (principal)
CPT/HCPCS: 87077; 87081

== ENCOUNTER → 2020-03-08 13:50 | Outpatient (CLI) | payer MEDICAID, SELFPAY ==
[2020-01-01 10:40] VITALS: BMI 52.4
[2020-03-03 09:35] VITALS: BMI 51.2
--- NOTE | 2020-03-08 13:51 | US_ITS ---
STUDY: SECOND AND THIRD TRIMESTER OBSTETRICAL ULTRASOUND - LIMITED REASON FOR EXAM: Female, 29 years old . Growth. LMP: 07/02/2019. PRIOR ULTRASOUND: 01/12/2020, 02/09/2020 and 02/26/2020 TECHNIQUE: Transabdominal TECHNICAL QUALITY: Adequate. FINDINGS: There is a single intrauterine fetus. The fetus is in a cephalic presentation. There is demonstrated cardiac activity with a heart rate of 147 bpm. There is a normal amniotic fluid volume. The largest amniotic fluid pocket measures 5.92 cm. The amniotic fluid index (FRANCK) is 17.53 cm. The placenta is fundal in location. There are Grade grade placental changes. The cervix is obscured. BIOMETRY: BPD: 9.18 cm: 37 weeks, 1 days HC: 32.82 cm: 37 weeks, 2 days AC: 35.99 cm: 39 weeks, 6 days FL: 6.87 cm: 35 weeks, 1 days Age by LMP: 37 weeks, 5 days. BETTY by LMP: 03/24/2020. age by prior US: 38 weeks, 0 days. BETTY by prior US: 03/22/2020. age by current US: 37 weeks, 3 days. BETTY by current US: 03/26/2020. Estimated weight: 05/13/2000 grams, +/- 525 grams, 70 percentile. Gender: Indeterminant US/OB Limited With Biometrics IMPRESSION: 1. Live single intrauterine at 37 weeks, 3 days. BETTY is 03/26/2020. There is adequate interval growth since the initial ultrasound. 2. EFW 3501 g. 3. FRANCK of 17.53 cm. 4. Fundal grade 3 placenta. 5. VERTEX presentation. Electronically Signed: Edin Jones DO at 23:31 EST Tel [phone], Service support ,
== END ==
PROVIDERS: Referring Provider Obstetrics & Gynecology; Visit Provider Obstetrics & Gynecology
DX: O99.210 Obesity complicating pregnancy, unspecified trimester (principal); Z3A.37 37 weeks gestation of pregnancy
CPT/HCPCS: 76816

== ENCOUNTER → 2020-03-10 | Outpatient (CLI) | payer MEDICAID, SELFPAY ==
[2020-03-03 09:35] VITALS: BMI 51.2
[2020-03-09 11:47] VITALS: BMI 51.0
== END | disposition home or self-care (01) ==
LOC: LABSPEC 09:54
PROVIDERS: Visit Provider Obstetrics & Gynecology
DX: Z34.90 Encounter for supervision of normal pregnancy, unspecified, unspecified trimester (principal)
CPT/HCPCS: 87635; C9803; U0003

== ENCOUNTER 2020-03-17 09:20 | Inpatient (IN) | payer MEDICAID, SELFPAY ==
[2020-01-13 10:53] VITALS: BMI 52.5
[2020-03-16 14:44] VITALS: BMI 52.9
[2020-03-17] VITALS (16 sets, daily range): BP systolic 80–128; BP diastolic 28–73; PULSE 59–85; RESP 14–20; TEMP 35.8–36.4; O2SAT 94–99; BMI 54.4
--- NOTE | 2020-03-17 10:27 | PCM.HPOB.BLA ---
- Problem List (1) 37 weeks gestation of Status: Acute Comment: covid test electronic ordered 03/03/2020 (rapid test day of, magdiel khan) (2) Abnormal glucose affecting Status: Acute Comment: 3gtt- normal. nl 1 hour at 26 weeks (3) GBS (group B Streptococcus carrier), +RV culture, currently Status: Acute Comment: Tx at time of delivery. (4) History of delivery Status: Acute Comment: plan RLTCS and BS with SM. title 19 signed 01/12 (5) Influenza vaccination declined Status: Acute (6) Obesity affecting Status: Acute Qualifiers: Comment: BMI>40. nl 1 TM glucola. encouraged healthy weight gain.>32w q4wk growth US and weekly nsts; Growth US 01/12- 64%; 86% (7) Status: Acute Qualifiers: Comment: NIPT low risk, carrier negative , AFP negative. nl anatomy. 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 Business Integration Required: No Accompanied by: self Allergies adhesive Allergy (Verified 03/09/20 11:48) Rash amoxicillin [Amoxicillin] Allergy (Verified 03/09/20 11:48) Rash cefaclor [From Ceclor] Allergy (Verified 03/09/20 11:48) Rash Penicillins Allergy (Verified 03/09/20 11:48) Rash Medications Multivit No.40/Iron/Folat1/Dha [Prenate Essential Softgel] 1 ea PO DAILY 02/19/20 [History Confirmed 03/09/20] Last Menstral Period: 06/18/19 Zika: Zika virus screening: Negative : No PFSH PFSH Medical History PTSD (post-traumatic stress disorder) (Acute) Surgical History S/P (Resolved) S/P tonsillectomy and adenoidectomy (Resolved) Family History Father Diabetes Bipolar 1 disorder Social History (Updated 03/09/20 @ 13:[address] Nathalia Jansen MD) Smoking Status: Current some day smoker alcohol intake: never substance use type: does not use caffeine: Yes what type of physical activity do you participate in: none seatbelt use: always do you feel safe at home: Yes additional social history: Boyfriend-Frank Pregancy History 4 Elective abortions Hx Para 1 Spontaneous abortions 2 Hx # Term Pregnancies Ectopic pregnancies Hx # Pregnancies Multiple births # of living children 1 Past Pregnancies Del. Date Name GA/Weeks Outcome Route Bth Weight Infant Gen Labor Lgth Anesthesia Del Locatn Provider FOB 06/02/14 Frank 41 live - full term 8lbs 12oz Male spinal [facility] Frank Delivery Date: 06/02/14 No issues during Leslie Dawkins HPI 38 WK OB/NST: Details: DAVID MANDEL is a 29 year old who presents for repeat section declined TOLAC. OB Visit BETTY Calculator Estimated Delivery Date Method Current WG Current Estimate 03/24/20 LMP (Certain) 37w 6d Other Estimates 03/18/20 Ultrasound #1 38w 5d Expected Delivery Route/Plan RLTCS w/ SM cotrol: title 19 signed for BPS. Specific Issue/Plans flu vaccine: declined tdap vaccine: given. rhogam: na LARC form signed: declined movement and labor precautions reviewed. Problem list reviewed and updated with the most current plan of care details and appropriate orders placed. Relevant counseling for the gestational age provided. Continue routine care and follow up unless otherwise noted in visit notes/problem list details Initial Weight: 244 lb Date EGA Weight BP Urine Prot Glucose FHR FuHt Pres Dilation Effaced St Visit Note 09/09/19 11w 6d 244 lb (+0 oz) 130/84 160 CRL 6.37cm cons with LMP 10/08/19 16w 0d 247 lb (+3 lb) 108/64 Negative Negative 156 MH-no vb, lof. MFM US ordered. AFP today. 11/05/19 20w 0d 250 lb 2 oz (+6 lb 2 oz) 118/76 Negative Negative 12/02/19 23w 6d 261 lb (+17 lb) 126/78 Negative Negative 145 GP - no LOF, VB, DFM, cramping. Denies complaints. GTT given to have done next time. 01/01/20 28w 1d 268 lb 4 oz (+24 lb 4 oz) 128/78 Negative Negative 150 29 GP - no LOF, VB, DFM, ctx. GCT done today. Discussed control. Considering BTL at time of c/s. 01/13/20 29w 6d 269 lb (+25 lb) 120/78 145 SM- no vb lof good fm no regular ctx 01/25/20 31w 4d 272 lb (+28 lb) 136/82 Negative Negative 145 32 SM- no vb lof good fm nor egular ctx 02/10/20 33w 6d 270 lb (+26 lb) 122/82 Negative Negative 140 33 GP - no LOF, VB, DFM, ctx. Denies complaints. 02/17/20 34w 6d 275 lb 4 oz (+31 lb 4 oz) Negative Negative NST only reactive 02/24/20 35w 6d 270 lb (+26 lb) 112/73 Negative Negative 140 36 SM- some decreased movement- nst today reactive recommend bpp saturday03/03/20 37w 0d 280 lb 2 oz (+36 lb 2 oz) 110/70 Negative Negative 150 38 GP - no LOF, VB, DFM, ctx. nst reactive. COVID testing ordered. GP - no LOF, VB, DFM, ctx. nst reactive. COVID testing scheduled. 03/09/20 37w 6d 279 lb (+35 lb) 120/70 Negative Negative 130 GP - no LOF, VB, DFM, regular ctx. 03/17. Given ERAS pre-op materials. Diagnostics Diagnostics Diagnostics Gest Glucose Tolerance MG/DL 01/05/20 Hgb 12.7 g/dL (12.0-15.0) 02/19/20 Hct 38.5 % (37-47) 02/19/20 Details: HIV: Urine Culture: Sequential Screen: NIPT Screen: ROS Const Reports system reviewed and no additional complaints, except as docu Eyes Reports system reviewed and no additional complaints, except as docu ENT Reports system reviewed and no additional complaints, except as docu Card Reports system reviewed and no additional complaints, except as docu Resp Reports system reviewed and no additional complaints, except as docu GI Reports system reviewed and no additional complaints, except as docu Reports system reviewed and no additional complaints, except as docu, Denies abnormal vaginal bleeding, Denies painful urination, Denies pelvic pain, Denies vaginal discharge, Denies vaginal odor, Denies vaginal itching Musc Reports system reviewed and no additional complaints, except as docu Skin/Breast Reports system reviewed and no additional complaints, except as docu Neuro Yes system reviewed and no additional complaints, except as docu Psych Reports system reviewed and no additional complaints, except as docu Endo Reports system reviewed and no additional complaints, except as docu Exam Const General: cooperative, healthy appearing, comfortable, no acute distress, well developed, well groomed Nutritional Appearance: average body habitus, well nourished Orientation: alert, awake, oriented x3 HENMT Head: normal to inspection, normocephalic, atraumatic Eyes Pupils: PERRL, accommodation normal Resp Effort & Inspection: normal respiratory effort, able to speak in complete sentences, symmetric chest movement Cardio Rate: regular rate GI Palpation: soft, no guarding, no masses, nontender Skin General: no rashes or lesions noted, elasticity normal, turgor normal Neuro General: alert, awake, oriented x3 Cranial Nerves: CN's II-XI intact bilaterally, sense of smell intact, PERRL, accommodation normal, EOM intact bilaterally Speech: speech normal Gait: normal gait Psych Appearance: grossly normal, well kempt Mental Status: mental status grossly normal Mood: congruent mood Affect: normal affect Speech and Movement: speech and movement normal Attitude: cooperative Thought Process: normal Thought Content: normal Judgment: judgment good Office Procedures OB NST Non-Stress Test Indications for Monitoring: Yes Morbid obesity Heart Rate Baseline: 130 Heart Rate Variability: moderate Movement: Present Heart Rate Accelerations: Present Decelerations: Absent Contractions: Absent Impression: Yes Reactive Non-Stress Test Results POC Urinalysis 2 Dip (Clinic) Office Urine Glucose Negative Last Edit by Delaney Spain on 03/09/20 12:06 Office Urine Protein Negative Last Edit by Delaney Spain on 03/09/20 12:06 Assessment & Plan Problems 1. GBS (group B Streptococcus carrier), +RV culture, currently O99.820 Tx at time of delivery. 2. 37 weeks gestation of Z3A.37 covid test electronic ordered 03/03/2020 3. Abnormal glucose affecting O99.810 3gtt- normal. nl 1 hour at 26 weeks 4. Supervision of high risk , antepartum O09.90 PRR BETTY 03/24/20 girl Fanny Marie (AJ) Frank 5. Influenza vaccination declined Z28.21 6. Obesity affecting O99.210 BMI>40. nl 1 TM glucola. encouraged healthy weight gain.>32w q4wk growth US and weekly nsts; Growth US 01/12- 64%; 86% 7. History of delivery Z98.891 plan RLTCS and BS with SM. title 19 signed 01/12 8. 38 weeks gestation of Z3A.38 NIPT low risk, carrier negative , AFP negative. nl anatomy. plan RLTCS and BS After discussing the patient's diagnosis and treatment plan options, patient wishes to proceed with surgical management. I have discussed with the patient the risks, benefits, and alternatives of the procedure which include but are not limited to risks of anesthesia, bleeding, infection, possible damage to bowel, bladder, or surrounding vasculature which could lead to additional surgery to evaluate any complications. Patient agrees to procedure and wishes to proceed. ACOG/uptodate references given for additional information regarding procedure. Orders Orders: OB NST Today O09.90 POC Urinalysis 2 Dip (Clinic) Today Coding Level of Care Code Off vis,est,level 3 Diagnoses GBS (group B Streptococcus carrier), +RV culture, currently O99.820 37 weeks gestation of Z3A.37 Abnormal glucose affecting O99.810 Supervision of high risk , antepartum O09.90 Influenza vaccination declined Z28.21 Obesity affecting O99.210 History of delivery Z98.891 38 weeks gestation of Z3A.38 ??Weeks of gestation: 38 weeks Additional Codes Non-Stress Test (74649)
[2020-03-17] MEDS: Lactated Ringers 1,000 ML 999 ML IV (10:30)
[2020-03-17 10:56] LABS: Absolute Lymphocyte Count 2.92 X10^3/uL (0.83-4.51); Absolute Neutrophil Count 9.3 X10^3/uL (2.0-7.7); Basophil# 0.04 X10^3/uL; Basophil% 0.3 % (0-1); Eosinophil# 0.17 X10^3/uL; Eosinophils% 1.3 % (0-5); Hematocrit 36.9 % (37-47); Hemoglobin 12.1 g/dL (12.0-15.0); Lymphocyte # 2.92 X10^3/ul (4.0); Lymphocyte % 22.1 % (19-41); Mean Corp Hgb Conc 32.8 g/dL (32-36); Mean Corpuscular Hgb 26.5 pg (27.0-32.0); Mean Corpuscular Volume 80.9 fL (81-99); Mean Platelet Vol. 9.8 fl (6.2-12.0); Monocyte# 0.72 X10^3/uL; Monocyte% 5.5 % (0-10); NRBC Flagged by Analyzer 0 % (0-5); Neutrophil # 9.26 X10^3/uL (2.7-7.7); Neutrophil % 70.2 % (47-70); Platelet Count 259 K/mm3 (150-450); RBC Distribution Width CV 13.4 % (11.6-14.6); RBC Distribution Width SD 38.5 fl (35.1-43.9); Red Blood Count 4.56 M/mm3 (4.2-5.4); White Blood Count 13.2 K/mm3 (4.4-11.0)
[2020-03-17] MEDS: Acetaminophen 500 MG Tablet 1000 MG PO ×2 (11:01→17:57)
[2020-03-17] MEDS: Lactated Ringers 1,000 ML 150 ML IV (12:00)
[2020-03-17] MEDS: Sodium Citrate/Citric Acid 30 ML UDC PO (12:27)
--- NOTE | 2020-03-17 12:35 | OP.PCM_ITS ---
Problem List (1) 37 weeks gestation of Status: Acute Comment: covid test electronic ordered 03/03/2020 (rapid test day of, magdiel khan) (2) Abnormal glucose affecting Status: Acute Comment: 3gtt- normal. nl 1 hour at 26 weeks (3) GBS (group B Streptococcus carrier), +RV culture, currently Status: Acute Comment: Tx at time of delivery. (4) History of delivery Status: Acute Comment: plan RLTCS and BS with SM. title 19 signed 01/12 (5) Influenza vaccination declined Status: Acute (6) Obesity affecting Status: Acute Qualifiers: Comment: BMI>40. nl 1 TM glucola. encouraged healthy weight gain.>32w q4wk growth US and weekly nsts; Growth US 01/12- 64%; 86% (7) Status: Acute Qualifiers: Comment: NIPT low risk, carrier negative , AFP negative. nl anatomy. (8) Supervision of high risk , antepartum Status: Acute Comment: PRR BETTY 03/24/20 girl Fanny YA Marie (AJ) Frank Delivery Classification: Scheduled Final BETTY: 03/24/20 Gestational age: 39 Weeks and 1 Days straightener: Eliseo Claudio Type of Anesthesia:: Spinal Special Medications: none Implants Used: none Date of Procedure: 03/17/20 Pre-Operative Diagnosis: previous cs and desired sterilization Post-Operative Diagnosis: same Indications for : Repeat Elective , Desires elective sterilization Description of Procedure: Spinal anesthesia was placed without difficulty. Lopez catheter was placed. The patient was placed in the dorsal supine position with leftward tilt. Patient was prepped and draped in the normal sterile fashion. Pfannenstiel skin incision was made with the scalpel and carried through to the underlying layer of fascia with the scalpel. Fascia was nicked in the midline and the incision extended laterally. The rectus bellies were dissected off superiorly and inferiorly with out complication both sharply and bluntly. The peritoneum was entered digitally. The incision was stretched and a low transverse uterine incision was made with the scalpel. The 's head was delivered atraumatically followed by the anterior and posterior shoulders without complication the rest of the delivered. The cord was clamped and cut and the infant was handed off to awaiting nurse. The placenta was delivered spon taneously immediately following and was noted to be intact and have a three- vessel cord. The uterus was exteriorized cleared of all clots and debris, and the incision was closed in a single layer closure using #1 Monocryl. The ovaries and fallopian tubes were noted to be within normal limits. Patient had desired sterilization and was counseled preoperatively regarding irreversibility and permanency. Therefore bilateral fallopian tubes were elevated and transected across using a LigaSure device starting proximally to distally without complication the entire fallopian tubes were removed. The uterus was returned to the maternal abdomen and gutters were cleared of all clots and debris. The peritoneum was closed with 3-0 Monocryl in a running fashion. Gloves were changed prior to fascial closure. Fascia was closed with 0 PDS in a running fashion. Subcutaneous tissue was copiously irrigated and the skin was closed with 3-0 Monocryl in a subcuticular fashion. Mepilex dressing was applied without complication. Patient was taken to recovery in stable condition. Amniotic Membrane Rupture Type: Artificial Amniotic Fluid Description: Clear Placenta Disposition: [facility] Drain: Lopez to straight drain Fluids Replaced: crystalloid Cord Entanglement: Around neck x 1, loose Esitmated Blood Loss (ml): 600 Infant Gender: Female Delayed cord clamping: Yes Antibiotic Given: Clindamycin 600mg IV x1 and Gentamicin 1.5mg/kg IV x1, Zithromax 500 mg/5 mL X1 Pt instructed on risks of surgery: Bleeding, Anesthesia Risks, Infection, Permanency, Failure Rate of 1 to 2%, Injury to surrounding structure(s) including bowel and bladder Complications: None - Admit VTE Documentation VTE Present on Admission: No VTE Mechan Device Prophylaxis: SCD's Multi Select Codes - Urinary/Genital Urinary/Genital CPT Codes: 79509 C/S+TL - bilateral tube removal
--- NOTE | 2020-03-17 12:39 | DCINST_ITS ---
Discharge Diet: No Restrictions Discharge Activity: May Not Drive - for 2 weeks, May not drive while taking narcotic pain medications., May Shower, May Take a Tub Bath - in 7 days May resume sexual activity in: 4-6 weeks Lifting Restrictions: 20 pounds Additional Activity Instructions:: Nothing in the vagina for 4-6 weeks. You may return to work/school in 6 weeks. Call your doctor if your incision/area has: Continuous Slow Oozing, Sudden Increased Bleeding, Increased Pain/ Swelling, Increased Redness, Foul Smelling Discharge Call your doctor if you observe: Fever of 101 or Higher, Using more than one pad per hour - for 2 hours Suture Line Care: Avoid Pulling/Pushing, Avoid Pinching/Bending Cleanse incision/area with: Keep Dressing Clean & Dry Additional Instructions: If you experience any of the following, contact your healthcare provider. * Bleeding that soaks a pad every hour for 2 hours * Fever 100.4 or higher * Unrelieved incision or abdominal pain * Swelling, redness, discharge or bleeding from your incision or episiotomy site * Your incision begins to separate * Problems urinating (including inability to urinate or burning while urinating). * Visual changes * Severe headache * Flu-like symptoms * Pain or redness in one of both of your breasts * Pain, warmth, tenderness or swelling in your legs, especially the calf area * Frequent nausea and vomiting * Symptoms of depression or anxiety If you experience any of the following, call 911 or go to the nearest Emergency Room. * Chest pain * Problems breathing * Seizure activity * Partial or complete paralysis of a body part, slurred speech, weakness or drooping of the face, or a sudden inability to walk or hold your balance Allergies/Adverse Reactions: Allergies adhesive Allergy (Verified 03/16/20 14:45) Rash amoxicillin [Amoxicillin] Allergy (Verified 03/16/20 14:45) Rash cefaclor [From Ceclor] Allergy (Verified 03/16/20 14:45) Rash Penicillins Allergy (Verified 03/16/20 14:45) Rash Medications to take at Discharge Naproxen [Naprosyn] 250 - 500 mg PO Q8H PRN PRN #30 tab 03/17/20 Oxycodone HCl/Acetaminophen [Percocet 5-325] 1 - 2 tablet PO Q6H PRN PRN 7 Days #15 tablet 03/17/20 Vits [Prenatabs FA] 1 tab PO DAILY 03/17/20 The following prescriptions were given: Naproxen [Naprosyn] 250 - 500 mg PO Q8H PRN PRN #30 tab PRN Reason: MILD PAIN Transmission Status: Pending to [facility] Oxycodone HCl/Acetaminophen [Percocet 5-325] 1 - 2 tablet PO Q6H PRN PRN 7 Days #15 tablet PRN Reason: Pain Transmission Status: Sent to [facility] Follow-Up: Call to make an appointment with your doctor for an incision check in 1-2 weeks. You will also need a 6 week post- follow up appointment. Test results from this visit will be discussed in further detail at your follow- up appointment, if applicable. Please Follow Up With: Hailey Loving MD - Call to make an appointment for an incision check in 1-2 [phone] When: You will need a post- check in 6 weeks. Primary Care Physician: Care Physician,No Primary [Primary Care Provider] -
--- NOTE | 2020-03-17 13:01 | FALS_PTH ---
PATIENT: DAVID MANDEL LOC: [facility] U#:[id number] AGE/SX: 29/F ROOM: WP004 RE03/17/[address]: Dr. Hailey Loving MD : 1990 BED: 1 DIS: 03/19/2020 SPEC #: [id number] RECD: 03/17/20 14:59 STATUS: MAHNAZ REJon #: [id number] CRISTOPHER: 03/17/20 13:[address]: Hailey Loving DEPT: SURGICAL PATHOLOGY RECD BY: Ellen Sanchez ENTERED: 03/18/20 07:15 SP TYPE: FALL TUBES OTHR DR: Ankita Primary Care Phys Tissues: Fallopian tube Procedures: Surgery Specimen Level II HEADER OPERATION: Tubal ligation PRE-OP DIAGNOSIS: Sterilization TISSUE SUBMITTED: Fallopian tubes, suture in left tube MICROSCOPIC DIAGNOSIS Bilateral fallopian tubes, salpingectomy: Right fallopian tube - focal decidual changes and hemosiderin laden macrophages. Left fallopian tube - no pathologic diagnosis. SJ:hans 03/21/2020 MICROSCOPIC DESCRIPTION Slides are reviewed. GROSS DESCRIPTION Received in fixative is one container labeled with the patient's name and designated bilateral fallopian tubes, suture in left tube. The specimen consists of two fallopian tubes with an average length of 6 cm and has an average diameter of 0.7 cm. Both fallopian tubes have normal fimbriated ends. No mass lesions are identified. Supervisor Fishing sections are submitted in two cassettes as follows: 1 - right fallopian tube, 2 - left fallopian tube. / AM:hans 03/18/2020 TC:5 CPT: 76668 x2
[2020-03-17] MEDS: Oxytocin 30 units/NS 500 ml 30 UNITS/500 ML IV.SOLN 167 UNITS IV (14:00)
[2020-03-17 15:30] LABS: Pathology Specimen OB SEE PATHOLOGY REPORT
[2020-03-17] MEDS: Lactated Ringers 1,000 ML 100 ML IV (17:00)
[2020-03-17] MEDS: oxyCODONE 5 MG Tablet PO ×2 (17:56→21:58)
[2020-03-17] MEDS: Ketorolac 30 MG/ML Syringe IV (20:00)
[2020-03-17] MEDS: 0.9% Saline Lock 10 ML Syringe IV (20:00)
[2020-03-18] MEDS: Acetaminophen 500 MG Tablet 1000 MG PO ×4 (00:05→18:10)
[2020-03-18] MEDS: 0.9% Saline Lock 10 ML Syringe IV ×3 (01:07→14:10)
[2020-03-18] MEDS: Ketorolac 30 MG/ML Syringe IV ×3 (01:07→14:10)
[2020-03-18] MEDS: Enoxaparin 40 MG/0.4 ML Syringe SC ×3 (01:07→21:37)
[2020-03-18 01:21] VITALS: BP 97/57; PULSE 74; RESP 16; TEMP 36.7; O2SAT 97
[2020-03-18] MEDS: oxyCODONE 5 MG Tablet PO ×4 (04:00→21:44)
[2020-03-18 04:01] VITALS: BP 101/47; PULSE 85; RESP 18; TEMP 36; O2SAT 99
[2020-03-18 05:56] LABS: Hematocrit 34.7 % (37-47); Hemoglobin 11.3 g/dL (12.0-15.0); Mean Corp Hgb Conc 32.6 g/dL (32-36); Mean Corpuscular Hgb 26.5 pg (27.0-32.0); Mean Corpuscular Volume 81.5 fL (81-99); Mean Platelet Vol. 10.1 fl (6.2-12.0); Platelet Count 251 K/mm3 (150-450); RBC Distribution Width CV 13.3 % (11.6-14.6); Red Blood Count 4.26 M/mm3 (4.2-5.4); White Blood Count 13.5 K/mm3 (4.4-11.0)
--- NOTE | 2020-03-18 07:15 | PN.OBGYN_ITS ---
Patient Problems: Active and Suspected Problems (Last Updated 03/16/20 @ 14:46 by Paola Oviedo) GBS (group B Streptococcus carrier), +RV culture, currently (Acute) Tx at time of delivery. 37 weeks gestation of (Acute) covid test electronic ordered 03/03/2020 (rapid test day of, magdiel khan) Abnormal glucose affecting (Acute) 3gtt- normal. nl 1 hour at 26 weeks Influenza vaccination declined (Acute) Supervision of high risk , antepartum (Acute) PRR BETTY 03/24/20 girl Fanny Marie (AJ) Frank Obesity affecting (Acute) BMI>40. nl 1 TM glucola. encouraged healthy weight gain.>32w q4wk growth US and weekly nsts; Growth US 01/12- 64%; 86% History of delivery (Acute) plan RLTCS and BS with SM. title 19 signed 01/12 (Acute) NIPT low risk, carrier negative , AFP negative. nl anatomy. Subjective: Patient doing well without complaints. Tolerating PO. Ambulating and voiding without difficulty. feeding well. Denies chest pain, shortness of breath, calf pain/swelling, fevers, chills, lightheadedness. - Physical Exam Vitals/I&O's: Vital Signs Temp Pulse Resp BP Pulse Ox 96.8 F L 85 18 101/47 L 99 03/18/20 04:01 03/18/20 04:01 03/18/20 04:01 03/18/20 04:01 03/18/20 04:01 Oxygen Delivery Method Room Air Weight: 278 lb 10.629 oz Body Mass Index (BMI) 54.4 Intake and Output for Last 24 Hours 03/16/20 03/17/20 03/18/20 23:59 23:59 23:59 Intake Total 3111.75 / 3111.75 711.67 / 711.67 Output Total 850 / 850 950 / 950 Balance 2261.75 / 2261.75 -238.33 / -238.33 General: Alert, Oriented x3 Laboratory Results 03/17/20 10:30: WBC 13.2 H, RBC 4.56, Hgb 12.1, Hct 36.9 L, MCV 80.9 L, MCH 26.5 L, MCHC 32.8, RDW Std Deviation 38.5, RDW Coeff of John Paul 13.4, Plt Count 259, MPV 9.8, Immature Gran % (Auto) 0.600, Neut % (Auto) 70.2 H, Lymph % (Auto) 22.1, Morton % (Auto) 5.5, Eos % (Auto) 1.3, Baso % (Auto) 0.3, Absolute Neuts (auto) 9.3 H, Absolute Lymphs (auto) 2.92, Nucleated RBC % 0 03/17/20 10:30: Blood Type B POSITIVE, Antibody Screen NEGATIVE 03/18/20 05:45: WBC 13.5 H, RBC 4.26, Hgb 11.3 L, Hct 34.7 L, MCV 81.5, MCH 26.5 L, MCHC 32.6, RDW Std Deviation 39.0, RDW Coeff of John Paul 13.3, Plt Count 251, MPV 10.1 Current Medications Acetaminophen (Acetaminophen 500 Mg Tablet) 1,000 mg PO Q6H [facility] Last Admin: 03/18/20 05:40 Dose: 1,000 mg Documented by: Bisacodyl (Bisacodyl 10 Mg Suppository) 10 mg RECTAL UD PRN PRN Reason: If no BM Enoxaparin Sodium (Enoxaparin 40 Mg/0.4 Ml Syringe) 40 mg SC BID [facility] Last Admin: 03/18/20 01:07 Dose: 40 mg Documented by: Hydrocortisone (Hydrocortisone 2.5% Crm) 1 applic TOPICAL TID PRN PRN; Protocol PRN Reason: Discomfort Hydromorphone HCl (Hydromorphone 1 Mg/Ml Syringe) 0.5 - 1.5 mg IV Q3H PRN PRN PRN Reason: Pain Score 4-10 Stop: 03/18/20 13:58 Lactated Ringer's () 1,000 mls @ 100 mls/hr IV .Q10H [facility] Last Infusion: 03/18/20 00:07 Dose: Infused Documented by: Ketorolac Tromethamine (Ketorolac 30 Mg/Ml Syringe) 30 mg IV Q6H [facility] Stop: 03/18/20 13:31 Last Admin: 03/18/20 01:07 Dose: 30 mg Documented by: Methylergonovine Maleate (Methylergonovine 0.2 Mg/Ml Ampul) 0.2 mg IM X1 PRN PRN Reason: Uterine Atony Naproxen (Naproxen 250 Mg Tablet) 500 mg PO Q8H RODRIGO Ondansetron HCl (Ondansetron 4 Mg/2 Ml Vial) 4 mg IV Q4H PRN PRN PRN Reason: Nausea Oxycodone HCl (Oxycodone 5 Mg Tablet) 5 - 10 mg PO Q4H PRN PRN PRN Reason: Pain Score 4-10 Last Admin: 03/18/20 04:00 Dose: 10 mg Documented by: Multivit/Folic Acid/Iron ( Vits Tablet) 1 tablet PO DAILY@1200 RODRIGO Prochlorperazine Edisylate (Prochlorperazine 10 Mg/2 Ml Vial) 10 mg IV Q6H PRN PRN PRN Reason: NAUSEA Senna/Docusate Sodium (Senna/Docusate Sodium 1 Tablet) 0 tablet PO DAILY [facility] Simethicone (Simethicone 80 Mg Tablet) 80 mg PO PCHS PRN PRN Reason: Indigestion/stomach pain Sodium Chloride (0.9% Saline Lock 10 Ml Syringe) 5 - 15 ml IV UD PRN PRN Reason: SALINE FLUSH Last Admin: 03/18/20 01:07 Dose: 15 ml Documented by: Medical Necessity - Tobacco Use Smoking Status: Current every day smoker Assessment/Plan All Active Problems (Last Updated 03/16/20 @ 14:46 by Paola Oviedo) GBS (group B Streptococcus carrier), +RV culture, currently (Acute) 37 weeks gestation of (Acute) Abnormal glucose affecting (Acute) Influenza vaccination declined (Acute) Supervision of high risk , antepartum (Acute) Obesity affecting (Acute) History of delivery (Acute) (Acute) Complete (Resolved) s/p LTCS PPD # 1 1. routine post care 2. breast feeding- support given 3. rh positive 4. rubella immune
[2020-03-18 08:25] VITALS: BP 103/52; PULSE 80; RESP 18; TEMP 36.1; O2SAT 97
[2020-03-18] MEDS: Senna/Docusate Sodium 1 Tablet PO (10:05)
[2020-03-18 12:45] VITALS: BP 111/46; PULSE 81; RESP 16; TEMP 36.3; O2SAT 97
[2020-03-18] MEDS: Prenatal Vits Tablet 1 TABLET PO (12:50)
--- NOTE | 2020-03-18 16:00 | CASEMGMT ---
Social Work Assessment Labor and Delivery Unit Patient Address: [address] [place] [id number] Phone number: [phone] Date of Referral: 03.17.2020 Time of Referral: 152 Referred By: Dr. Loving Date of Intervention: 03.18.2020 Time of Intervention: 1600 Reason for Referral: maternal history of PTSD, resources History obtained from: medical records and mother of baby (MOB) Virgie Hernandez; Father of baby (FOB) Frank Lopez also present for part of conversation. Household composition: MOB, FOB, and their older son. Plan to take infant to this home at discharge. Patient's parent/guardian status: MOB is 29 year old single female, involved with the FOB who is age 38, together for 8 years. While alone with the MOB, inquired about abuse/control/intimidation issues in this relationship. MOB denies any safety concern or history of abuse in the relationship with the FOB. MOB and FOB now have 2 children together. Minor children include: Frank Lopez (born 06.02.2014) and baby Thiago Lopez (born 03.17.20). Medical History: MOB is G4, P1 to 2 after delivering . care started at 11 weeks gestation and regular thereafter. Baby delivered at 39 weeks gestation. weight 8 pounds 7 ounces. Apgars 9 and 9 at 1 and 5 minutes of life respectively. Educational Status: MOB with high school diploma. Denies any issues with reading, writing, or learning comprehension. Financial Status: MOB is not currently working outside of the home. FOB reports to be self employed as a building construction professor. Infant Supplies: MOB reports to have needed infant supplies for baby including crib, pack-n-play, bassinet, crib, clothing, wipes, diapers. Plans to provide both milk from breast and from bottle. Childcare/Caregiver(s): MOB and FOB to both care for the children. Transportation: No reported issues disclosed. Programs/Agencies Involved: MOB is involved with [facility] Medicaid through local [place]. Active with WIC. History of HMG, but declines a new referral. Children Services/Legal Issues: Denies any legal issues. Denies past or present involvement with children services. Behavioral Health Issues: Mental Health History: MOB reports to have history of PTSD (from childhood trauma), Anxiety, and Depression. Reports Anxiety as more prominent for the MOB. History of medications, but did go off of these shortly after meeting the FOB. MOB reports to talk with FOB when upset and this is helpful. MOB reports she has also done counseling, has found this helpful, and would be willing to go back again if needed. MOB denies any thoughts of harm to self or others, or history of such. [place] [employer] Depression screen a score of 10 this date. MOB reports to feel that current symptoms are baseline for the MOB, and that MOB does not feel in distress regarding emotions at this time. Substance Use History: MOB denies any alcohol or drug abuse/use drying the . MOB reports she quit drinking a few years ago. Denies history of illicit drug use. Family History: MOB's father has bipolar disorder. History of addiction in the family as well. FOB reports he himself has also quit drinking, in the last few years, more recent than the MOB. Drug Screens: Maternal drug screen negative on 09.09.19. Family/Social Stressors: No reported stressors or concerns at this time reported. Support Systems: MOB reports FOB and family are supportive. MOB does talk to her mother and the FOB when upset. FOB plans to take some time off of work, to help with transition home with the baby. Depression/Shaken Baby/Safe Sleeping: Educated to safe sleeping and shaken baby prevention. Parents able to communicate appropriate responses to shaken baby prevention. Educated MOB and FOB to mood and anxiety, risk factors, and importance of seeking out help and support if symptoms worsen/intensify/become distressing. ASSESSMENT: Met with MOB and FOB in room, and then alone with MOB. Initially when high school social studies tutor entered the room and introduced to self and role, the FOB questioned why the hospital is sending a high school social studies tutor in as this did not happen with the first child. Educated to various reason for consult and that here today to talk bout resources and . Educated that when depression screen is done, that would ask FOB to step out of the room as screening is to be done 1:1. FOB questioned this advertising copy writer, as to whether this is mandatory. Educated that it is not mandatory at the sate level, but more of a best practice. FOB accepted explanation once high school social studies tutor stated this was not a state mandate. While together, both MOB and FOB participated in conversation with the high school social studies tutor. FOB did often repeat belief that it is very important to have both parents together and raising a baby. Observed both parents handle the baby. FOB changed a diaper, and swaddled the baby, was gentle and appropriate in how handled the baby. FOB left the room when high school social studies tutor asked, and did so without issue. During private conversation with the MOB, the MOB denied that FOB has ever been abusive or controlling in any way. MOB reports the FOB has been helpful to MOB and is supportive when MOB is having a hard time. MOB reports to feel her depression/anxiety is at usual baseline and not distressing. Denies need or desire to restart medication, and reports if symptoms worsen would go back to counseling. MOB reports to feel she has adequate support from family, to have needed baby supplies, and to have a positive connection with the baby already. No voiced concerns by nursing staff regarding parent/child interactions or bonding. MOB does decline referral to [facility]. MOB's affect appropriate and congruent to content discussed. PLAN: MOB and baby to home when ready for discharge. [facility] resource list provided, along with packet on mood and anxiety disorders. No other services requested or indicated. -NAYLA Woods, [place] *Information documented in this assessment generated with [employer]*
[2020-03-18 16:15] VITALS: BP 111/56; PULSE 70; RESP 18; TEMP 36.1; O2SAT 98
[2020-03-18 20:06] VITALS: BP 119/46; PULSE 74; RESP 16; TEMP 36.4; O2SAT 96
[2020-03-18] MEDS: Naproxen 250 MG Tablet 500 MG PO (20:13)
[2020-03-19] MEDS: Acetaminophen 500 MG Tablet 1000 MG PO ×3 (00:08→13:12)
[2020-03-19 02:55] VITALS: BP 123/48; PULSE 71; RESP 14; TEMP 36.3
[2020-03-19] MEDS: Naproxen 250 MG Tablet 500 MG PO ×2 (03:14→12:03)
[2020-03-19] MEDS: oxyCODONE 5 MG Tablet PO ×2 (04:56→12:04)
[2020-03-19 09:40] VITALS: BP 115/55; PULSE 66; RESP 16; TEMP 36.7; O2SAT 99
[2020-03-19] MEDS: Enoxaparin 40 MG/0.4 ML Syringe SC (09:48)
[2020-03-19] MEDS: Senna/Docusate Sodium 1 Tablet PO (09:49)
[2020-03-19] MEDS: Prenatal Vits Tablet 1 TABLET PO (12:04)
--- NOTE | 2020-03-19 12:35 | PCM.PN.OB ---
Patient Problems: Active and Suspected Problems (Last Updated 03/16/20 @ 14:46 by Paola Oviedo) Influenza vaccination declined (Acute) Subjective: Patient doing well without complaints. Tolerating PO. Ambulating and voiding without difficulty. feeding well. Denies chest pain, shortness of breath, calf pain/swelling, fevers, chills, lightheadedness. - Physical Exam Vitals/I&O's: Vital Signs Temp Pulse Resp BP Pulse Ox 98.1 F 66 16 115/55 L 99 03/19/20 09:40 03/19/20 09:40 03/19/20 09:40 03/19/20 09:40 03/19/20 09:40 Oxygen Delivery Method Room Air Weight: 278 lb 10.629 oz Body Mass Index (BMI) 54.4 Intake and Output for Last 24 Hours 03/17/20 03/18/20 03/19/20 23:59 23:59 23:59 Intake Total 3111.75 / 3111.75 811.67 / 811.67 Output Total 850 / 850 1550 / 1550 Balance 2261.75 / 2261.75 -738.33 / -738.33 General: Alert, Oriented x3 Current Medications Acetaminophen (Acetaminophen 500 Mg Tablet) 1,000 mg PO Q6H [facility] Last Admin: 03/19/20 05:51 Dose: 1,000 mg Documented by: Bisacodyl (Bisacodyl 10 Mg Suppository) 10 mg RECTAL UD PRN PRN Reason: If no BM Enoxaparin Sodium (Enoxaparin 40 Mg/0.4 Ml Syringe) 40 mg SC BID [facility] Last Admin: 03/19/20 09:48 Dose: 40 mg Documented by: Hydrocortisone (Hydrocortisone 2.5% Crm) 1 applic TOPICAL TID PRN PRN; Protocol PRN Reason: Discomfort Methylergonovine Maleate (Methylergonovine 0.2 Mg/Ml Ampul) 0.2 mg IM X1 PRN PRN Reason: Uterine Atony Naproxen (Naproxen 250 Mg Tablet) 500 mg PO Q8H [facility] Last Admin: 03/19/20 12:03 Dose: 500 mg Documented by: Ondansetron HCl (Ondansetron 4 Mg/2 Ml Vial) 4 mg IV Q4H PRN PRN PRN Reason: Nausea Oxycodone HCl (Oxycodone 5 Mg Tablet) 5 - 10 mg PO Q4H PRN PRN PRN Reason: Pain Score 4-10 Last Admin: 03/19/20 12:04 Dose: 10 mg Documented by: Multivit/Folic Acid/Iron ( Vits Tablet) 1 tablet PO DAILY@1200 RODRIGO Last Admin: 03/19/20 12:04 Dose: 1 tablet Documented by: Prochlorperazine Edisylate (Prochlorperazine 10 Mg/2 Ml Vial) 10 mg IV Q6H PRN PRN PRN Reason: NAUSEA Senna/Docusate Sodium (Senna/Docusate Sodium 1 Tablet) 0 tablet PO DAILY [facility] Last Admin: 03/19/20 09:49 Dose: 1 tablet Documented by: Simethicone (Simethicone 80 Mg Tablet) 80 mg PO PCHS PRN PRN Reason: Indigestion/stomach pain Sodium Chloride (0.9% Saline Lock 10 Ml Syringe) 5 - 15 ml IV UD PRN PRN Reason: SALINE FLUSH Last Admin: 03/18/20 14:10 Dose: 10 ml Documented by: Medical Necessity - Tobacco Use Smoking Status: Current every day smoker Assessment/Plan All Active Problems (Last Updated 03/16/20 @ 14:46 by Paola Oviedo) Influenza vaccination declined (Acute) 37 weeks gestation of (Resolved) Abnormal glucose affecting (Resolved) GBS (group B Streptococcus carrier), +RV culture, currently (Resolved) History of delivery (Resolved) Obesity affecting (Resolved) (Resolved) Supervision of high risk , antepartum (Resolved) Complete (Resolved) s/p LTCS PPD # 2 1. routine post care 2. breast feeding- support given 3. rh positive 4. rubella immune
[2020-03-19 13:50] VITALS: BP 140/68; PULSE 84; RESP 16; TEMP 36.7; O2SAT 99
== END 2020-03-19 14:30 | disposition home or self-care (01) | DRG 539 ==
PROVIDERS: Admitting Provider Obstetrics & Gynecology; Referring Provider Obstetrics & Gynecology; Visit Provider Obstetrics & Gynecology
PROC: 10D00Z1 Extraction of Products of Conception, Low, Open Approach (ICD-10-PCS; CPT 59514; principal; 2020-03-17 11:45)
DX: O34.211 Maternal care for low transverse scar from previous cesarean delivery (principal); O99.824 Streptococcus B carrier state complicating childbirth; Z30.2 Encounter for sterilization; O99.52 Diseases of the respiratory system complicating childbirth; J45.909 Unspecified asthma, uncomplicated; O99.214 Obesity complicating childbirth; E66.9 Obesity, unspecified; O99.334 Smoking (tobacco) complicating childbirth; F17.210 Nicotine dependence, cigarettes, uncomplicated; Z3A.39 39 weeks gestation of pregnancy; Z37.0 Single live birth
CPT/HCPCS: 85025; 85027; 86850; 86900; 86901; 88302; 99218; J7120; A4216; G0378; J2405

== ENCOUNTER 2021-07-03 12:18 | Emergency (ER) | payer MEDICAID, SELFPAY ==
[2021-07-03 12:20] VITALS: BP 128/87; PULSE 105; RESP 16; TEMP 37.1; O2SAT 98; BMI 120.5
--- NOTE | 2021-07-03 12:59 | EDS_ITS ---
HPI History of Present Illness Chief Complaint: Dental Informant: patient Narrative Narrative: 30-year-old female presenting to the emergency room with dental pain. Patient states that last night her right posterior most molar which has been broken for some time has begun to hurt. Today she notes some swelling of the gum tissue. She does not have a dentist but is trying to find one. She states that Tylenol is ineffective. She notes a penicillin allergy she is a smoker. She notes hot cold sensitivity. [facility] Medical History (Updated 07/03/21 @ 13:[address] Corwin Scott DO) Asthma Fatigue PTSD (post-traumatic stress disorder) SOB (shortness of breath) Home Medications naproxen 250 - 500 mg PO Q8H PRN PRN #30 tab 03/17/20 [Rx Last Taken Unknown] vit,[id number] 1 tab PO DAILY 03/17/20 [History Last Taken 03/16/20] clindamycin HCl [Cleocin HCl] 300 mg PO Q6H #40 capsule 07/03/21 [Rx Last Taken Unknown] hydrocodone-acetaminophen 1 tab PO Q6H PRN PRN 3 Days #10 tablet 07/03/21 [Rx Last Taken Unknown] naproxen 500 mg PO BID #20 tab 07/03/21 [Rx Last Taken Unknown] Allergy/AdvReac Type Severity Reaction Status Date / Time adhesive Allergy Rash Verified 03/31/20 10:30 amoxicillin [Amoxicillin] Allergy Rash Verified 03/31/20 10:30 cefaclor [From Ceclor] Allergy Rash Verified 03/31/20 10:30 Penicillins Allergy Rash Verified 03/31/20 10:30 Family History Father Diabetes Bipolar 1 disorder Other Heart disease Surgical History S/P S/P tonsillectomy and adenoidectomy Social History Smoking Status: Current every day smoker tobacco type: cigarettes alcohol intake: never substance use type: does not use caffeine: Yes what type of physical activity do you participate in: none seatbelt use: always do you feel safe at home: Yes additional social history: Boyfriend-Frank CONDE ROS ED Constitutional Constitutional ED: Denies chills, fever(s) or weight loss Eyes Eyes: Denies change in vision or diplopia ENT ENT ED: Reports other Details: Dental pain ; Denies ear pain, rhinorrhea or sore throat Cardiovascular Cardiovascular: Denies chest pain, orthopnea, palpitations or racing heartbeat Respiratory/Chest Respiratory/Chest: Denies cough, dyspnea or orthopnea Gastrointestinal Gastrointestinal: Denies abdominal pain, diarrhea, nausea or vomiting Genitourinary Genitourinary ED: Denies dysuria, hematuria or urinary frequency Musculoskeletal Musculoskeletal: Denies arthralgias or myalgias Integumentary Denies abscess or rash Neurologic Neurologic: Denies headache(s) or weakness Psychiatric Psychiatric: Denies anxiety, depression, suicidal ideation or suicidal thoughts Endocrine Endocrinology: Denies polydipsia, polyphagia or polyuria Allergic/Immunologic Allergic/Immunologic ED: Denies mouth swelling, tongue swelling or urticaria EXAM Physical Exam Const Vital Signs: 07/03/21 12:20 Temperature 98.7 F Temperature Source Temporal Pulse Rate 105 H Respiratory Rate 16 Blood Pressure 128/87 H Blood Pressure Mean 100 Pulse Ox 98 Oxygen Delivery Method Room Air Positive well nourished, well developed and obese General Appearance ED: well developed Nutritional Appearance: obese HEENT Reports normocephalic, head/scalp atraumatic and moist mucous membranes HEENT Narrative: There is no trismus. There is no facial swelling. Intraorally the right posterior most remaining molar shows it to be broken at 50%. There is gum tissue that is mildly swollen but not abscessed. Floor the mouth is soft. No facial erythema. Eyes PERRL and EOMs intact bilaterally Neck no lymphadenopathy, supple and no JVD Resp normal respiratory effort and clear to auscultation bilaterally Cardio regular rate, regular rhythm and no murmurs GI normal to inspection, nondistended, normoactive bowel sounds and non-tender Palpation: soft Back/Spine no CVA tenderness and normal ROM Extremity normal to inspection General Extremety ED: Negative for edema General Extremity: Negative for edema Neuro oriented x3 and CN's II-XII intact bilaterally Sensorium / Orientation: alert Motor Exam: strength 5/5 throughout Psych mental status grossly normal Mood & Affect: Negative for depressed or tearful Skin no rashes or lesions noted and no wounds MDM MDM MDM Narrative Medical decision making narrative: Patient was started on clindamycin due to her penicillin allergy. I can write for a few [place] and recommend anti- inflammatories. She needs a dentist as soon as possible Discharge Plan Triage Chief Complaint: Dental ED Provider: Corwin Scott Dx/Rx/DC Orders Clinical Impression: Dental caries, Odontalgia Instructions: ED Dental Pain Prescriptions: New clindamycin HCl [Cleocin HCl] 300 MG capsule 300 mg PO Q6H Qty: 40 RF: 0 hydrocodone-acetaminophen [hydrocodone-acetaminophen] 1 TABLET tablet 1 tab PO Q6H PRN PRN (Reason: Pain) 3 Days Qty: 10 RF: 0 naproxen 500 MG tablet 500 mg PO BID Qty: 20 RF: 0 No Action vit,[id number] 1 TABLET tablet 1 tab PO DAILY RF: 0 naproxen 250 MG tablet 250 - 500 mg PO Q8H PRN PRN (Reason: MILD PAIN) Qty: 30 RF: 1 Primary Care Provider: Care Physician,No Primary Referrals: Care Physician,No Primary [Primary Care Provider] - Activity Restrictions/Additional Instructions: Follow-up with dentist as soon as possible Disposition Disposition: Home, Self Care
== END 2021-07-03 13:15 | disposition home or self-care (01) ==
PROVIDERS: Emergency Provider Emergency Medicine; Visit Provider Emergency Medicine
DX: K02.9 Dental caries, unspecified (principal); K08.89 Other specified disorders of teeth and supporting structures; S02.5XXA Fracture of tooth (traumatic), initial encounter for closed fracture; X58.XXXA Exposure to other specified factors, initial encounter; J45.909 Unspecified asthma, uncomplicated; F17.210 Nicotine dependence, cigarettes, uncomplicated; Z79.1 Long term (current) use of non-steroidal anti-inflammatories (NSAID); Z79.899 Other long term (current) drug therapy
CPT/HCPCS: 99282

== ENCOUNTER 2023-10-06 18:53 | Emergency (ER) | payer MEDICAID, SELFPAY ==
[2023-10-06 18:54] VITALS: BP 160/70; PULSE 55; RESP 18; TEMP 36.3; O2SAT 100; BMI 39.1
--- NOTE | 2023-10-06 19:03 | ED.VIS.DENTA ---
HPI <VIC Verdugo - Last Filed: 10/06/23 19:09> History of Present Illness Chief Complaint: Dental Narrative Narrative: Patient's a 32-year-old female with history of drug abuse who is currently taking Suboxone presenting to the emergency department with an ongoing issue with right lower fractured tooth. Patient was seen here 2 years ago for similar. Patient has 2 fractured teeth to the right posterior molars, she states that this intermittently causes her discomfort. Patient states for the last 24 hours it has been much worse. She is currently waiting into the dentist. Patient denies any fever chills nausea or vomiting. PFS <VIC Verdugo - Last Filed: 10/06/23 19:09> [facility] Medical History (Updated 10/06/23 @ 19:06 by VIC Verdugo) Asthma Fatigue SOB (shortness of breath) PTSD (post-traumatic stress disorder) Home Medications ?Medication ?Instructions ?Recorded ?Last Taken ?Type naproxen 250 mg tablet 250 - 500 mg (1 - 2 x 250 mg) PO 03/17/20 Unknown Rx Q8H PRN PRN MILD PAIN #30 tabs vits,calcium no.78-iron 1 tab PO DAILY Check with primary 03/17/20 03/16/20 History fumarate-folic acid 29 mg-1 mg doctor tablet clindamycin HCl 300 mg capsule 300 mg PO Q6H #40 CAPSULES 07/03/21 Unknown Rx (Cleocin HCl) hydrocodone-acetaminophen 5-325mg 1 tab PO Q6H PRN PRN Pain 3 days 07/03/21 Unknown Rx 5mg-325mg #10 TABLETS naproxen 500 mg tablet 500 mg PO BID #20 tabs 07/03/21 Unknown Rx clindamycin HCl 150 mg capsule 450 mg (3 x 150 mg) PO TID 7 days 10/06/23 Unknown Rx #63 caps naproxen 500 mg tablet (Naprosyn) 500 mg PO BID PRN pain #20 tabs 10/06/23 Unknown Rx Allergy/AdvReac Type Severity Reaction Status Date / Time adhesive Allergy Rash Verified 10/06/23 18:54 amoxicillin (Amoxicillin) Allergy Rash Verified 10/06/23 18:54 cefaclor (From [facility]) Allergy Rash Verified 10/06/23 18:54 Penicillins Allergy Rash Verified 10/06/23 18:54 Family History Father Diabetes Bipolar 1 disorder Other Heart disease Surgical History S/P S/P tonsillectomy and adenoidectomy Social History Smoking Status: Current every day smoker tobacco type: cigarettes alcohol intake: never substance use type: does not use caffeine: Yes what type of physical activity do you participate in: none seatbelt use: always do you feel safe at home: Yes additional social history: Boyfriend-Frank CONDE <VIC Verdugo - Last Filed: 10/06/23 19:09> ROS ED ROS Narrative Constitutional: Negative for fever, chills, weight loss, weakness Eyes: Negative for vision loss, vision change, double vision ENT: Negative for any sore throat, ear pain, congestion. Positive for mouth pain, right lower jaw pain Cardiovascular: Negative for any chest pain, tightness, palpitations Respiratory: Negative for any cough, sputum production, hemoptysis, dyspnea, dyspnea on exertion, orthopnea Gastrointestinal: Negative for any abdominal pain, nausea, vomiting, diarrhea, constipation, blood in stool, blood in vomit : Negative for any urinary frequency, dysuria, retention, blood in urine Muscle skeletal: Negative for any neck pain, back pain Neurological: Negative for any headache, syncope, dizziness Skin: Negative for any rashes, itching, abrasions, lacerations Psychiatric: Negative for any depression, anxiety, stress, suicidal ideation, homicidal ideation Hematologic: Negative for any excessive bruising, easy bleeding EXAM <VIC Verdugo - Last Filed: 10/06/23 19:09> Physical Exam Narrative Exam Narrative: Vital signs reviewed. HEET: Head normocephalic atraumatic, TMs clear bilaterally. Posterior pharynx is clear, moist mucous membranes. Nares clear bilaterally. Patient does have fractured teeth to the right posterior premolar, the other molars are already broken. There is no drainable abscess. Negative for any trismus. Neck: Supple with no lymphadenopathy or tenderness. No signs of meningismus. Cardiac: Regular rate and rhythm no murmurs gallops or rubs, equal peripheral pulses bilaterally. Respiratory: Lungs clear to auscultation bilaterally. No chest tenderness. Abdomen: Soft, nontender, nondistended. No abdominal bruit or pulsatile masses. No hepatosplenomegaly Extremities: No peripheral edema, no signs of gross trauma or deformity. Active full range of motion of all extremities. Neuro: Cranial nerves II through XII intact, no focal neurological deficits. Skin: Clean dry and intact with no rash, purpura, petechiae, vesicles or pustules. Backs/flank: No CVA tenderness, no midline spinal tenderness, no deformity. Psych: Normal mood and affect. No SI, HI or acute psychosis. Const Vital Signs: 10/06/23 18:54 Temperature 97.4 F L Temperature Source Temporal Pulse Rate 55 L Respiratory Rate 18 Blood Pressure 160/70 H Blood Pressure Mean 100 Pulse Ox 100 Oxygen Delivery Method Room Air <Dr. Juan Allen MD - Last Filed: 10/06/23 19:13> Physical Exam Const Vital Signs: 10/06/23 18:54 Temperature 97.4 F L Temperature Source Temporal Pulse Rate 55 L Respiratory Rate 18 Blood Pressure 160/70 H Blood Pressure Mean 100 Pulse Ox 100 Oxygen Delivery Method Room Air [facility] <VIC Verdugo - Last Filed: 10/06/23 19:09> [facility] Treatment and Re-Evaluation Narrative: Differential diagnosis includes however is not limited to: Dental caries, tooth fracture, keven wigs angina, abscess Patient appears to be in no obvious distress vital signs are stable, presenting to the emergency department for an ongoing issue of pain to the right lower jaw. Patient does have poor dentition on this area. There is no drainable abscess. Patient given 1 oxycodone here, clindamycin. Patient be placed on clindamycin, naproxen for home. Instructed to follow-up outpatient with her dentist. She is agreeable with the plan, instructed return for any worsening symptoms. <Dr. Juan Allen MD - Last Filed: 10/06/23 19:13> [facility] Narrative Medical decision making narrative: I have personally performed a face to face assessment of the patient and have reviewed the SIRIA Note. I performed a substantive portion of the visit including all aspects of the following. My szymanski findings include: History is right mandibular molar dental pain for 1-2 days. Spontaneous in onset. States this has not bothered her before. Cannot get into see her dentist in a timely fashion. No systemic symptoms or fevers or bleeding. Exam is right mandibular second and third molars have significant decay, the third 1 appears to be decayed down to the gumline. There is no associated abscess or bleeding. No necrotic tissue. No trismus. No dysphonia. Medical Decison Making analgesics and antibiotics to prevent abscess, follow-up with dentistry soon as possible. This does not appear to be an acute issue even though the pain may be acute. Other additions or changes: [None] Discharge Plan Triage Chief Complaint: Dental ED Midlevel Provider: Charly Feliz ED Provider: Juna Allen Dx/Rx/DC Orders Clinical Impression: Dental abscess, Tooth ache Instructions: ED Dental Pain Prescriptions: New clindamycin HCl 150 mg capsule 450 mg PO TID 7 Days Qty: 63 0RF naproxen [Naprosyn] 500 mg tablet 500 mg PO BID PRN (Reason: pain) Qty: 20 0RF No Action vit,[id number] 1 TABLET tablet 1 tab PO DAILY naproxen 250 MG tablet 250 - 500 mg PO Q8H PRN PRN (Reason: MILD PAIN) Qty: 30 1RF clindamycin HCl [Cleocin HCl] 300 MG capsule 300 mg PO Q6H Qty: 40 0RF hydrocodone-acetaminophen [hydrocodone-acetaminophen] 1 TABLET tablet 1 tab PO Q6H PRN PRN (Reason: Pain) 3 Days Qty: 10 0RF naproxen 500 MG tablet 500 mg PO BID Qty: 20 0RF Primary Care Provider: Care Physician,No Primary Referrals: Care Physician,No Primary [Primary Care Provider] - Activity Restrictions/Additional Instructions: Follow-up with a dentist. Print Language: Malay Disposition Disposition: Home, Self Care
[2023-10-06] MEDS: Clindamycin HCl 150 MG Capsule 450 MG PO (19:13)
[2023-10-06] MEDS: oxyCODONE 5 MG Tablet PO (19:14)
== END 2023-10-06 19:21 | disposition home or self-care (01) ==
LOC: ED 19:20
PROVIDERS: Emergency Provider Emergency Medicine; PCP Registered Nurse; Visit Provider Emergency Medicine
DX: K04.7 Periapical abscess without sinus (principal); F19.11 Other psychoactive substance abuse, in remission; K08.89 Other specified disorders of teeth and supporting structures; K02.9 Dental caries, unspecified; S02.5XXA Fracture of tooth (traumatic), initial encounter for closed fracture; J45.909 Unspecified asthma, uncomplicated; F17.210 Nicotine dependence, cigarettes, uncomplicated; Z79.899 Other long term (current) drug therapy
CPT/HCPCS: 99283

== ENCOUNTER 2023-11-10 17:45 | Emergency (ER) | payer MEDICAID, SELFPAY ==
[2023-11-10 17:46] VITALS: BP 116/77; PULSE 71; RESP 18; TEMP 36.1; O2SAT 99; BMI 38.3
--- NOTE | 2023-11-10 19:28 | EDS_ITS ---
HPI History of Present Illness Chief Complaint: Allergic Reaction Detail of Chief Complaint: Patient presents because of redness, warmth and swelling left forearm Informant: patient Onset/Context/Timing Onset: Yesterday Context: Sudden Onset Timing: Continuous Quality: Localized allergic reaction to the left forearm, antecubital fossa and medi Location: Involving the left forearm volar surface, antecubital fossa and medial dist Current Severity: Mild Maximum Severity: Mild Worsened by: Hymenoptera envenomation Relieved by: Nothing Associated Symptoms Associated Symptoms: Swelling and itching Narrative Narrative: Patient is a 32-year-old woman who presents with localized reaction due to hymenoptera envenomation left upper extremity. She was intimated proximal volar left forearm. There is redness involving the mid volar forearm to the distal medial left arm. The area is erythematous, warm with no fluctuance or induration. There is no lymphangitis. There is no actual lymphadenopathy. She denies constitutional symptoms, cardiac or respiratory symptoms or orthostatic symptoms. Prior similar symptoms: No Recent Illness/Hospitalization: No [facility] Medical History (Updated 11/10/23 @ 19:[address] Robles Goldstein MD) Asthma Fatigue SOB (shortness of breath) PTSD (post-traumatic stress disorder) Home Medications ?Medication ?Instructions ?Recorded ?Last Taken ?Type naproxen 250 mg tablet 250 - 500 mg (1 - 2 x 250 mg) PO 03/17/20 Unknown Rx Q8H PRN PRN MILD PAIN #30 tabs clindamycin HCl 300 mg capsule 300 mg PO Q6H #20 CAPSULES 11/10/23 Unknown Rx (Cleocin HCl) hydroxyzine HCl 25 mg tablet 25 mg PO Q8H PRN itching #10 tabs 11/10/23 Unknown Rx Allergy/AdvReac Type Severity Reaction Status Date / Time adhesive Allergy Rash Verified 11/10/23 17:46 amoxicillin (Amoxicillin) Allergy Rash Verified 11/10/23 17:46 cefaclor (From Ceclor) Allergy Rash Verified 11/10/23 17:46 Penicillins Allergy Rash Verified 11/10/23 17:46 Family History Father Diabetes Bipolar 1 disorder Other Heart disease Surgical History S/P S/P tonsillectomy and adenoidectomy Social History Smoking Status: Current every day smoker tobacco type: cigarettes alcohol intake: never substance use type: does not use caffeine: Yes what type of physical activity do you participate in: none seatbelt use: always do you feel safe at home: Yes additional social history: Boyfriend-Frank ROS ROS ED Constitutional Constitutional ED: Denies chills, fever(s), subjective or sweats Eyes Eyes: Denies blurry vision or change in vision ENT ENT ED: Denies ear pain, rhinorrhea or sore throat Cardiovascular Cardiovascular: Reports other Details: Denies orthostatic symptoms. ; Denies chest pain or palpitations Respiratory/Chest Respiratory/Chest: Denies cough, dyspnea or dyspnea on exertion Gastrointestinal Gastrointestinal: Denies abdominal pain, diarrhea, nausea or vomiting Integumentary Reports rash Neurologic Neurologic: Denies headache(s), paresthesias or weakness Hematologic/Lymphatic Hematologic/Lymphatic: Reports systems reviewed and no addt'l complaints, except as documented EXAM Physical Exam Const Vital Signs: 11/10/23 17:46 Temperature 97.0 F L Temperature Source Temporal Pulse Rate 71 Respiratory Rate 18 Blood Pressure 116/77 Blood Pressure Mean 90 Pulse Ox 99 Oxygen Delivery Method Room Air Positive well nourished and well developed General Appearance ED: well developed and NAD; Negative for cyanotic, diaphoretic or pallor HEENT Reports moist mucous membranes HEENT Narrative: Head is atraumatic no cephalic. Ears normal. Nares patent. There is no evidence of angioedema. Posterior pharynx is normal. Eyes PERRL and EOMs intact bilaterally Neck no lymphadenopathy, supple and no JVD Chest Wall inspection of chest normal and palpation of chest normal Resp normal respiratory effort and clear to auscultation bilaterally Cardio regular rate, regular rhythm, S1 normal heart sound, S2 normal heart sound and no murmurs Extremity Extremity Narrative: There is evidence of a local reaction and possible infection of the left forearm, antecubital fossa and distal medial left arm. There is no lymphangitis, induration, lymphadenopathy. The area is warm with obvious swel ling. There is no fluctuant area to suggest an abscess. Neuro oriented x3 and CN's II-XII intact bilaterally Sensorium / Orientation: alert Psych mental status grossly normal Skin No no rashes or lesions noted and skin turgor normal General Skin Exam: elasticity normal; Negative for jaundice or pallor MDM MDM MDM Narrative Medical decision making narrative: Differential diagnosis is localized reaction to hymenoptera envenomation with secondary infection versus secondary infection. Will treat patient with clindamycin since she has allergy to cephalosporin and penicillins. She was given Atarax for her itching. She was instructed follow-up with her doctor. She was informed the name of her doctor/practitioner is located on the card issued to her by care source. She received her first dose of Atarax and clindamycin in the emergency department. Discharge Plan Triage Chief Complaint: Allergic Reaction ED Provider: Robles Goldstein Dx/Rx/DC Orders Clinical Impression: Allergic reaction to bee sting, Cellulitis of left upper extremity Instructions: ED General Allergic Reactions, ED Cellulitis Prescriptions: New clindamycin HCl [Cleocin HCl] 300 mg capsule 300 mg PO Q6H Qty: 20 0RF hydroxyzine HCl 25 mg tablet 25 mg PO Q8H PRN (Reason: itching) Qty: 10 0RF No Action naproxen 250 MG tablet 250 - 500 mg PO Q8H PRN PRN (Reason: MILD PAIN) Qty: 30 1RF Primary Care Provider: Marialuisa Degroot NP Referrals: Marialuisa Degroot NP, CRISIS WORKER-C [Primary Care Provider] - 2 Days for wound check Print Language: Malagasy Disposition Disposition: Home, Self Care
[2023-11-10] MEDS: Clindamycin HCl 150 MG Capsule 300 MG PO (19:35)
[2023-11-10] MEDS: hydrOXYzine 10 MG Tablet PO (19:35)
[2023-11-10 19:37] VITALS: BP 125/71; PULSE 61; RESP 16; TEMP 36.8; O2SAT 99
[2023-11-10 19:45] VITALS: BP 125/71; PULSE 61; RESP 16; O2SAT 99
== END 2023-11-10 20:10 | disposition home or self-care (01) ==
LOC: ED 20:02
PROVIDERS: Emergency Provider Emergency Medicine; Visit Provider Emergency Medicine
DX: T63.441A Toxic effect of venom of bees, accidental (unintentional), initial encounter (principal); L03.114 Cellulitis of left upper limb; J45.909 Unspecified asthma, uncomplicated; F17.210 Nicotine dependence, cigarettes, uncomplicated; Z88.0 Allergy status to penicillin; Z88.1 Allergy status to other antibiotic agents
CPT/HCPCS: 99283

== ENCOUNTER 2025-01-26 13:45 | Emergency (ER) | payer MEDICAID, SELFPAY ==
[2025-01-26 13:46] VITALS: BP 140/74; PULSE 70; RESP 14; TEMP 37.1; O2SAT 99; BMI 41.5
--- NOTE | 2025-01-26 14:26 | ED.VIS.DENTA ---
HPI History of Present Illness Chief Complaint: Dental Detail of Chief Complaint: Dental abscess Informant: patient Onset/Context/Timing Onset: Today Context: Sudden Onset Timing: Continuous Quality: Pain swelling right side of jaw Location: Tooth #30 Current Severity: Moderate Maximum Severity: Moderate Worsened by: Abscess Relieved by: - (Nothing) Associated Symptoms Assocated Symptom - Dental: jaw swelling; Negative for fever, face swelling, cold sensitivity or hot sensitivity Narrative Narrative: Patient is a 34-year-old woman. She contacted her dentist who recommend she come to the ER to have her infection cleared up. She has allergy to cephalosporin and penicillin. She developed hives. She denies fever, chills night sweats. She denies inability to swallow. She denies dysphonia. She does complain of pain under the mandible on the right side. She has no history of medic fever, heart murmur, mitral prolapse or SBE. There is no history of drug use. Prior similar symptoms: Yes Recent Illness/Hospitalization: No [facility] Medical History (Updated 01/26/25 @ 14:[address] Robles Goldstein MD) Asthma Fatigue SOB (shortness of breath) PTSD (post-traumatic stress disorder) Home Medications ?Medication ?Instructions ?Recorded ?Last Taken ?Type naproxen 250 mg tablet 250 - 500 mg (1 - 2 x 250 mg) PO 03/17/20 Unknown Rx Q8H PRN PRN MILD PAIN #30 tabs clindamycin HCl 300 mg capsule 300 mg PO Q6H #20 CAPSULES 11/10/23 Unknown Rx (Cleocin HCl) hydroxyzine HCl 25 mg tablet 25 mg PO Q8H PRN itching #10 tabs 11/10/23 Unknown Rx clindamycin HCl 300 mg capsule 300 mg PO Q6H #28 CAPSULES 01/26/25 Unknown Rx (Cleocin HCl) hydrocodone-acetaminophen 5-325mg 1 tab PO Q6H PRN PRN Pain 3 days 01/26/25 Unknown Rx 5mg-325mg #10 TABLETS naproxen 500 mg tablet 500 mg PO BID #14 tabs 01/26/25 Unknown Rx Allergy/AdvReac Type Severity Reaction Status Date / Time adhesive Allergy Rash Verified 01/26/25 13:47 amoxicillin (Amoxicillin) Allergy Rash Verified 01/26/25 13:47 cefaclor (From [facility]) Allergy Rash Verified 01/26/25 13:47 Penicillins Allergy Rash Verified 01/26/25 13:47 Family History Father Diabetes Bipolar 1 disorder Other Heart disease Surgical History S/P S/P tonsillectomy and adenoidectomy Social History Smoking Status: Current every day smoker tobacco type: cigarettes alcohol intake: never substance use type: does not use caffeine: Yes what type of physical activity do you participate in: none seatbelt use: always do you feel safe at home: Yes additional social history: Boyfriend-Frank CONDE ROS ED Constitutional Constitutional ED: Denies chills, fever(s), subjective, sweats or weight loss Eyes Eyes: Denies blurry vision or change in vision ENT ENT ED: Reports other Details: Dental abscess ; Denies ear pain, rhinorrhea or sore throat Cardiovascular Cardiovascular: Denies chest pain or palpitations Respiratory/Chest Respiratory/Chest: Denies cough, dyspnea or dyspnea on exertion Gastrointestinal Gastrointestinal: Denies nausea or vomiting Musculoskeletal Musculoskeletal: Denies neck pain Integumentary Denies rash Hematologic/Lymphatic Hematologic/Lymphatic: Denies easy bleeding or easy bruising Allergic/Immunologic Allergic/Immunologic ED: Denies mouth swelling, tongue swelling or urticaria EXAM Physical Exam Const Vital Signs: 01/26/25 13:46 Temperature 98.8 F Temperature Source Oral Pulse Rate 70 Respiratory Rate 14 Blood Pressure 140/74 H Blood Pressure Mean 96 Pulse Ox 99 Oxygen Delivery Method Room Air Positive well nourished and well developed General Appearance ED: well developed and NAD HEENT HEENT Narrative: Patient has swelling over the body of the mandible on the right side. There is an abscess involving tooth #30. There is no trismus. There is no dysphonia. There is no drooling. There is no evidence clinically of Jesus's angina. Trachea is midline. There is no history expiratory stridor. Negative for trauma or tenderness Mouth ED: Yes lips normal, Yes tongue normal, Yes salivary gland normal, No mouth trauma, Yes oral and palatal mucosa abnormal and No salivary gland abnormal Mouth: lips normal, tongue normal, salivary gland normal, No mouth trauma, oral and palatal mucosa abnormal and No salivary gland abnormal Teeth and Gingiva: abnormal tooth and associated gingiva, gingiva abnormal and poor dentition Throat: posterior oropharynx normal Eyes PERRL and EOMs intact bilaterally General Eye ED: Negative for pale conjunctiva or scleral icterus Neck no lymphadenopathy, supple and no JVD Neck Narrative: Submandibular lymphadenopathy on the right Lymph Lymphatic: lymphadenopathy Resp normal respiratory effort, no retractions and clear to auscultation bilaterally Cardio regular rate, regular rhythm, S1 normal heart sound, S2 normal heart sound and no murmurs Neuro oriented x3 and CN's II-XII intact bilaterally Sensorium / Orientation: alert Skin no rashes or lesions noted and no wounds Skin Narrative: There is no evidence of facial cellulitis. MDM MDM MDM Narrative Medical decision making narrative: Patient has abscess of tooth #30. She was treated with antibiotics and pain medicine. There is no evidence of concern for Ludewig's angina. There is no concern for masseter muscle abscess. In my opinion laboratory testing is not indicated nor is imaging indicated. Discharge Plan Triage Chief Complaint: Dental ED Provider: Robles Goldstein Dx/Rx/DC Orders Clinical Impression: Abscess, dental, Chronic periodontal disease, Gingivitis, Body mass index (BMI) of 40.1 to 44.9 in adult Instructions: ED Dental Abscess Prescriptions: New clindamycin HCl [Cleocin HCl] 300 mg capsule 300 mg PO Q6H Qty: 28 0RF hydrocodone-acetaminophen 5-325 mg tablet 1 tab PO Q6H PRN PRN (Reason: Pain) 3 Days Qty: 10 0RF naproxen 500 mg tablet 500 mg PO BID Qty: 14 0RF No Action naproxen 250 MG tablet 250 - 500 mg PO Q8H PRN PRN (Reason: MILD PAIN) Qty: 30 1RF clindamycin HCl [Cleocin HCl] 300 mg capsule 300 mg PO Q6H Qty: 20 0RF hydroxyzine HCl 25 mg tablet 25 mg PO Q8H PRN (Reason: itching) Qty: 10 0RF Primary Care Provider: Care Physician,No Primary Referrals: Care Physician,No Primary [Primary Care Provider, Medical] Activity Restrictions/Additional Instructions: Contact your dentist for follow-up for extraction of your tooth. Return if you are unable to swallow liquids or solids, unable to open your mouth or change in your voice. If you cannot swallow return immediately Print Language: Moroccan Disposition Disposition: Home, Self Care
[2025-01-26] MEDS: HYDROcodone Bitartrate/Apap 5/325 Tablet PO (14:27)
== END 2025-01-26 14:55 | disposition home or self-care (01) ==
PROVIDERS: Emergency Provider Emergency Medicine; Visit Provider Emergency Medicine
DX: K04.7 Periapical abscess without sinus (principal); F17.210 Nicotine dependence, cigarettes, uncomplicated; K05.10 Chronic gingivitis, plaque induced
CPT/HCPCS: 99282